=== PATIENT | female | born 1960 | race Caucasian/White ===

== ENCOUNTER 2019-06-10 17:16 | Outpatient (REF) | payer BC, SELFPAY ==
--- NOTE | 2019-06-10 15:45 | PAPFT_PTH ---
PATIENT: Ktahy Sharma LOC: NADIA U#:[id number] AGE/SX: 59/F ROOM: RE06/10/[address]: JESSICA Mast : 1960 BED: DIS: 06/10/2019 SPEC #: [id number] RECD: 06/10/19 17:56 STATUS: MILAGROS REFamilia #: [id number] ARTHUR: 06/10/19 15:[address]: Tiffanie Anderson DEPT: [facility] Cytology RECD BY: Kristina Eid ENTERED: 06/10/19 17:57 SP TYPE: PAPFT OTHR DR: Beatris Saeed Tissues: 1 - CX/ENDOCX FOR PAP SMEARS Procedures: PAP THIN PREP/[facility] Screening HPV DNA PROBE Comments: [id number]
== END 2019-06-10 17:36 ==
LOC: LBN 17:16
PROVIDERS: PCP Naturopath; Visit Provider Nurse Practitioner Family
DX: Z12.4 Encounter for screening for malignant neoplasm of cervix (principal); Z11.51 Encounter for screening for human papillomavirus (HPV)
CPT/HCPCS: 88142; 87624

== ENCOUNTER 2019-11-11 11:44 | Outpatient (CLI) | payer BC, SELFPAY ==
--- NOTE | 2019-11-11 11:21 | DI.RAD_ITS ---
EXAM: XR KNEE LT 4V AP,LAT,HAM,PAT INDICATION: eval L knee pain and crepitus. COMPARISON: No exams were available for comparison TECHNIQUE: 2D digital imaging was performed. FINDINGS: There is moderate to severe narrowing of the medial femoral tibial joint. There is spurring from the medial femoral condyle medial tibial plateau as well as tibial spines. There is mild spurring at th e articular aspect of the patella. The patella is normally positioned. 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
== END 2019-11-11 12:04 ==
PROVIDERS: PCP Naturopath; Visit Provider Student in an Organized Health Care Education/Training Program
DX: M25.562 Pain in left knee (principal); M23.92 Unspecified internal derangement of left knee
CPT/HCPCS: 73564

== ENCOUNTER 2020-07-26 02:58 | Outpatient (CLI) | payer BC, SELFPAY ==
--- NOTE | 2020-07-26 07:30 | DI.MAMMO_ITS ---
EXAM: MAMMO SCREENING CLINICAL HISTORY: screening TECHNIQUE: Mammograms were interpreted according to the usual protocol including computer analysis w [email or web address] CAD system, tomosynthesis and C-view imaging. COMPARISON: 2005 through 2008 FINDINGS: The breasts are composed of heterogeneously dense fibroglandular densities, Breast Density category C . No suspicious masses or suspicious microcalcifications are seen. No skin thickening or abnormal axillary lymph nodes are seen. There has been no significant change from prior exams. IMPRESSION: BI-RADS Category 1, Negative mammogram. Yearly screening mammography is recommended. Breast Density Category C, heterogeneously Dense. The mammogram demonstrates the patient's breast tissue is dense. Dense breast tissue is very common a nd is not abnormal but dense breast tissue can make it harder to find cancer on a mammogram. Also, de nse breast tissue may increase breast cancer risk. This information about the result of the mammogram report was provided to the patient to raise their awareness. Use this report when you speak with the patient about their risks for breast cancer, which includes their family history. At that time, you may recommend additional screening tests (Ultrasound or MRI) as they might be useful based on their r isk. A negative radiographic report should not delay biopsy if a dominant or clinically suspicious mass is present. Up to ten percent of cancers are not identified on mammography. A negative report may reinforce clinical impression. Adenosis and dense breasts may obscure an underlying neoplasm. False positive reports average 6 to 10%.
== END 2020-07-26 03:18 ==
PROVIDERS: PCP Naturopath; Visit Provider Nurse Practitioner Family
DX: Z12.31 Encounter for screening mammogram for malignant neoplasm of breast (principal); R92.2 Inconclusive mammogram
CPT/HCPCS: 77063; 77067

== ENCOUNTER 2021-01-30 04:26 | Outpatient (CLI) | payer BC, SELFPAY ==
--- NOTE | 2021-01-30 16:00 | RT.EKG_ITS ---
APPROVED REPORT Exam: Resting ECG Patient Location: O HR:87 bpm ECG Measurements Heart Rate 87 AXIS FL 118 P 75 QRSd 88 QRS 58 QT 379 T 39 QTc 456 Conclusion Sinus rhythm...normal P axis, V-rate 60- 99 Consider left ventricular hypertrophy...(S V1+R V5/V6) >3.25mV
== END 2021-01-30 04:27 | disposition home or self-care (01) ==
LOC: RT 04:26
PROVIDERS: PCP Naturopath; Visit Provider Naturopath
DX: R07.89 Other chest pain (principal)
CPT/HCPCS: 93005; 93010

== ENCOUNTER 2021-02-19 01:34 | Outpatient (CLI) | payer BC, SELFPAY ==
--- NOTE | 2021-02-19 10:16 | DI.RAD_ITS ---
EXAM: XR CHEST 2V PA LATERAL CLINICAL HISTORY: CHEST DISCOMFORT, OTHER CHEST PAIN,R07.89. TECHNIQUE: 2D digital imaging was performed. COMPARISON: No exams were available for comparison FINDINGS: Heart size is normal. The mediastinum is not widened. Lungs are clear. No infiltrates nor pleural effusions. IMPRESSION: No acute pulmonary findings. Incidentally noted is calcific tendinitis in the right shoulder. DATA REPOSITORY: RADIATION DOSE DELIVERED:
== END 2021-02-19 01:54 ==
PROVIDERS: PCP Naturopath; Visit Provider Naturopath
DX: R07.89 Other chest pain (principal)
CPT/HCPCS: 71046

== ENCOUNTER 2021-07-25 01:40 | Outpatient (CLI) | payer BC, SELFPAY ==
--- NOTE | 2021-07-25 14:53 | DI.US_ITS ---
APPROVED REPORT EXAM: Comprehensive 2D, Doppler, and color-flow Echocardiogram Patient Location: Out-Patient Maintenance Craftsman: Azul Da Silva RDCS (AE) Indications: Abnormal EKG Other Information Study Quality: Good Conclusion Normal left ventricular wall thickness and chamber size. Estimated ejection fraction is 60-65%. The re are no segmental wall motion abnormalities Normal right ventricular size and systolic function Both atria are normal in size There is no significant valvular disease Normal estimated right ventricular systolic pressure, 21 mmHg Wall motion Left Ventricle The left ventricle is normal size. The left ventricular systolic function is normal. The left ventric ular ejection fraction is within the normal range. There is normal left ventricular wall thickness. T here is normal LV segmental wall motion. There is no ventricular septal defect visualized. LVEF is 60 -65%. Right Ventricle The right ventricle is normal size. The right ventricular systolic function is normal. The RVSP is 21 .1 mmHg. Atria The left atrium size is normal. The right atrium size is normal. The interatrial septum is intact wit h no evidence for an atrial septal defect. Aortic Valve The aortic valve is normal in structure. Aortic valve is trileaflet. There is no aortic valvular sten osis. No aortic regurgitation is present. Mitral Valve The mitral valve is normal in structure. No evidence of mitral valve stenosis. Trace mitral regurgita tion. Tricuspid Valve The tricuspid valve is normal in structure. There is no tricuspid valve stenosis. Trace tricuspid reg urgitation. Pulmonic Valve The pulmonary valve is normal in structure. There is no pulmonic valvular stenosis. There is no pulmo flores valvular regurgitation. Great Vessels The aortic root is normal in size. The ascending aorta is normal in size. Aortic arch is normal in ca liber. IVC is normal in size and collapses >50% with inspiration. Pericardium There is no pericardial effusion. 2D Dimensions IVSD d PLAX 0.89 cm F: 0.6-1.0 LV Vol A2C d MOD 75.0 mL LVPW d PLAX 0.90 cm F: 0.6 - 1.0 LV Vol A4C d MOD 84.8 mL LVID d PLAX 4.48 cm F: 3.8 - 5.2 LA vol/ BSA A2C s A-L 20.2 mL/m2 LVDs 2.95 cm F: 2.2 - 3.5 LA vol/ BSA A4C s A-L 21.2 mL/m2 Ao Root d 2.96 cm F: 2.7 - 3.3 LA Vol/ BSA Biplane s A-L 20.8 mL/m2 RA Area A4C 10.81 cm2 LA Area A4C s MOD 14.29 cm2 RA Vol/ BSA A4C s A-L 13.4 mL/m2 LA Area A2C s MOD 13.90 cm2 Ao Asc Diam d 2.97 cm F: 2.3 - 3.1 LV EF A4C MOD 59.8 % LV EF Teichholz 63.1 % LV EF A2C MOD 66.0 % LVEF (Gerber's) 63.09 % F: 54 - 74 LV EF Biplane MOD 63.1 % LV Volume 63.86 mL F: 46 - 106 SV 50.86 mL LV Volume Index 37.34 mL/m2 F: 29 - 61 SV Index 29.72 mL/m2 LV Vol Biplane MOD 80.6 mL FS 33.95 % M-Mode TAPSE 2.70 cm (M/F) >1.7 LV Diastology MV E' medial 0.111 (>0.07 m/s) E/A Ratio 0.8 LV E/e MED 6.80 (<14) MV E Vmax 0.76 (0.4-1.3 m/s) MV E' lateral 0.127 (>0.1 m/s) MV A Vmax 0.90 (0.4-1.3 m/s) LV E/e LAT 5.95 (<14) MV E/A Ratio 0.84 MV E/E' medial 6.84 MV E/E' lateral 5.99 Aortic Valve LVOT Area 2.94 cm2 AoV Area Vmax 2.09 cm2 LVOT Vmax 1.01 m/s AoV Area/ BSA (Vmax) 1.22 cm2/m2 LVOT Mean Alexis. 0.70 m/s JOSE Mean Alexis. 2.12 cm2 LVOT Peak Grad 4.1 mmHg JOSE Mean Alexis. Index 1.24 cm2/m2 LVOT Mean Grad 2.2 mmHg LVOT VTI 0.223 m LVOT Diam s 1.90 cm AoV Vmax 1.43 m/s Velocity Ratio 0.70 AoV Mean Aleixs. 0.97 m/s AoV Peak Grad 8.2 mmHg LVOT SV 65.80 mL AoV Mean Grad 4.2 mmHg AoV VTI 0.313 m AoV Area VTI 2.10 cm2 AoV Area/ BSA (VTI) 1.23 cm/m2 Mitral Valve MV DT 195 (160-240 msec) MV PHT 56 msec MV Area PHT 3.90 cm2 MV VTI 0.291 m MV Area VTI 2.26 (4.0-6.0 cm2) Pulmonary Valve PV Vmax 1.26 (0.5-1.5 m/s) RVOT Peak Gr. 4.57 mmHg PV Peak Grad 6.4 mmHg RVOT Mean Gr. 2.05 mmHg PV Mean Grad 3.5 mmHg RVOT VTI 0.199 m PV VTI 0.261 m RVOT Vmax 1.07 m/s Tricuspid Valve TR Peak Grad 18.0 mmHg TR Vmax 2.13 m/s RA Pressure 3.00 mmHg RVSP (TR) 21.1 mmHg
== END 2021-07-25 02:00 ==
PROVIDERS: PCP Naturopath; Visit Provider Naturopath
DX: R94.31 Abnormal electrocardiogram [ECG] [EKG] (principal)
CPT/HCPCS: 93306

== ENCOUNTER 2021-10-19 13:27 | Emergency (ER) | payer BC, SELFPAY ==
--- NOTE | 2021-10-19 13:30 | DI.RAD_ITS ---
Exam(s) XR WRIST LT COMP NAVICULAR EXAM: XR WRIST LT COMP NAVICULAR CLINICAL HISTORY: FODAYAMI. TECHNIQUE: 2D digital imaging was performed. COMPARISON: No exams were available for comparison FINDINGS: There is a comminuted impacted fracture of distal radius. There is involvement of the radiocarpal abram int surface. Also significant dorsal angulation at the fracture site. No carpal dislocation. Very subtle suggestion of a nondisplaced fracture at the base of the ulnar styloid. No scaphoid-navicular fracture. Advanced degenerative changes at the 1st carpometacarpal joint are incidentally noted. IMPRESSION: Fracture of the distal radius as described above. There is involvement of the radiocarpal joint and there is dorsal angulation. Possible subtle nondisplaced fracture of the base of the ulnar styloid. DATA REPOSITORY: RADIATION DOSE DELIVERED:
--- OUTSIDE RECORDS SUMMARY | 2021-10-19 13:30 | XMS_ITS | Encounter Summary ---
:1960 External Reference #:[id number] Author Reason for Visit None recorded. Assessment and Plan Assessment Note I spent a total of 40 minutes face to face time with this patient and 25 minutes of that time was spent in counseling and coordination of care with that patient as described in the progress note and /or: recommended diagnostic studies risks and benefit treatment options Risk factor re duction 1. Edema of lower extremity ? leg and ankle edema: care instructions 2. Dietary management surveillan ce 3. Osteoarthritis ? arthritis: care instructio ns ? osteoarthritis: care instr uctions Discussion Note: None recorded. Plan of Care Patient Instructions 1. call for fu appt after stool elizabeth t sent in- 2. continue Calcium d glcarate, other gi support- you will try gi fortify again??? exercise program- Metabolic renewal Osteoarthritis support- contiue as rudi GENAO help draw out fluid buildup- plea se try to take daily in am or at work Reminders Provider Appointments None recorded. ? ? Lab None recorded. ? ? Referral None recorded. ? ? Procedures None recorded. ? ? Surgeries None recorded. ? ? Imaging None recorded. ? ? Medications Name Start Date ? ? Arthroben ? Collagen peptides, scutellaria biac. 1scoop/day or as directed [facility] testing admin fee ? SAMPLE COLLECTION DATE 09/06/2020 TIME 9 15AM PATIE NT 1960 Custom Herbal Blend#1 ? as directed 60 drops 3xday isatis, scutellaria baicalensis, copti s, devil's claw, teasel D-Mulsion 1000iu ? Take 1, 2, 3, , 4, or 5 drop/day 3-4 drops/day Glucosamine Msm 10/27/2015 Medications Administered None recorded. Vitals Weight Blood Pressure 151 lbs 116/68 mm[Hg] Results Lab Results None recorded. Allergies None recorded. Problems Name Status Onset Date Source ? Osteoarthritis Active 10/01/2017 ? Adult Health Examination Active 10/01/2018 ? Pain in Left Knee Active 10/01/2018 ? Vitamin D Deficiency Active 01/12/2019 ? Serrated Polyp of Colon Active 08/08/2020 ? Bilateral Tinnitus Active 08/08/2020 ? Edema of Lower Extremity Active 08/06/2021 ? Dietary Management Surveillance Active 08/06/2021 ? Procedures Date Name Performed by ? 05/27/1988 Caesarean Section Information not avai lable 10/27/1986 Caesarean Section Information not avai lable Vaccine List Vaccine Type DT (pediatric) 10/27/1964 DTP 10/27/1964 MMR 10/27/1964 polio, unspecified formulation 10/27/1964 rubella/mumps 10/27/1964 tetanus toxoid, unspecified formulation 04/26/2015 Social History Tobacco Smoking Status Never Smoker What type of diet are you following? REGULAR Do you have difficulty walking or N climbing stairs? What is your parents' marital status? Are you currently employed? Y Are you able to care for yourself? Y Marital status Do you have any siblings? one 1/2 sister How much tobacco do you chew? none What is your relationship status? Single Animal exposure? Y What is your level of alcohol Occasional consumption? Education 2 Year College Which illicit or recreational drugs have no you used? Frequent air travel N Are you deaf or do you have serious N difficulty hearing? Are you passively exposed to smoke? 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 [employer] - no degree Do you have difficulty dressing or N bathing? How many children do you have? 2 Are you blind or do you have difficulty N seeing? Supplements glucosimine, occ. vitamins Do you have difficulty doing errands N alone? General stress level Low How many years have you consumed 30 alcohol? What is your exercise level? Occasional Have there been any changes to your N family or social situation? Live alone or with others? alone Are you sexually active? N Do you use protection during sex? Always Do you have difficulty concentrating, N remembering or making decisions? Hard of hearing or deaf in one or both N ears? What is your level of caffeine Moderate consumption? 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 Past Encounters 08/01/2021 Edema of Lower Extremity; Dietary Manage ment Surveillance; Osteoarthritis Beatris Saeed, ND: [address], [place] [address], Ph. [phone] History of Present Illness Note: <div>when she was doing more fiber her stools were more bulky and easier to pass- she is eating some raw foods and cruciferous broccoli</div><div>4/7 dayswhen she took the gi fortify- </div><div>and she threw up but maybe thinks it was a headache related vomit- </div><div>
</div><div>hands dont hurt- </div><div>but her fluid retention in feet and ankles are still an issue- </div><div>she has soreness in her feet- </div><div>outer ankle both ankles- </div><div>
</div><div>she will call about fu after gdx sttool in- </div><div>she decided to do completeanalysis instead of cologuard bc cologaurd too expensive for out of pocket- </div><div>
</div><div>
</div> Review of Systems None recorded. Physical Exam ? General Adult Exam Reported By: Patient Constitutional: General Appearance: healthy- appearing, well-nourished, well-developed. Level of Dis tress: NAD. Ambulation: ambulating normally Psychiatric: Insight: good judgement. Men abhishek Status: active and alert, normal mood, normal affect. Orienta tion: to time, to place, to person. Memory: recent memory normal , remote memory normal Lungs: Respiratory effort: no dyspn ea. Percussion: no dullness, flatness, or hyperresonance. Auscultat ion: breath sounds normal, good air movement, CTA except as note d, no wheezing, no rales/crackles, no rhonchi Cardiovascular: Apical Impulse: not displace d. Heart Auscultation: RRR, normal S1, normal S2, no murmurs, no ru bs, no gallops. Neck vessels: no carotid bruits. Pulses inclu ding femoral / pedal: normal throughout Abdomen: Bowel Sounds: normal. Inspec tion and Palpation: soft, non-distended, no tenderness , no guarding, no rebound tenderness, no masses, no CVA tenderness . Liver: non-tender, no hepatomegaly. Spleen: non-tender, no splen omegaly. Hernia: none palpable Musculoskeletal:: Joints, Bones, and Muscles: bony deformity, malalignment, tenderness. Extremities: cleopatra ma; slight- non pitting Neurologic: Gait and Station: normal gai t, normal station
--- OUTSIDE RECORDS SUMMARY | 2021-10-19 13:30 | XMS_ITS | Encounter Summary ---
:1960 External Reference #:[id number] Author Reason for Visit None recorded. Assessment and Plan Assessment Note I spent a total of 40 minutes face to face time with this patient and 25 minutes of that time was spent in counseling and coordination of care with that patient as described in the progress note and /or: Importance of compliance with treatment plan Risk factor reduction instructions for t reatment and follow-up 1. Dietary management surveillan ce 2. Osteoarthritis ? osteoarthritis: care instr uctions 3. Flatulence, eructation and ga s pain ? gas and bloating: care ins tructions Discussion Note: None recorded. Plan of Care Patient Instructions 1. megaspores 1 cap 2xday 2. calcium d-glucarate 1 cap 2xday 3. motilpro-1 cap 3xday herbal tincture :oregano leaf and coptis combo 60 drops 2xday prodha 1 [id number] Reminders Provider Appointments None recorded. ? ? Lab None recorded. ? ? Referral None recorded. ? ? Procedures None recorded. ? ? Surgeries None recorded. ? ? Imaging None recorded. ? ? Medications Name Start Date ? ? Arthroben ? Collagen peptides, scutellaria biac. 1scoop/day or as directed [facility] testing admin fee ? SAMPLE COLLECTION DATE 09/06/2020 TIME 9 15AM PATIE NT 1960 Custom Herbal Blend#1 ? as directed 60 drops 3xday isatis, scutellaria baicalensis, copti s, devil's claw, teasel D-Mulsion 1000iu ? Take 1, 2, 3, , 4, or 5 drop/day 3-4 drops/day Glucosamine Msm 10/27/2015 Medications Administered None recorded. Vitals Weight 151 lbs Results Lab Results None recorded. Allergies None [...] Information) Functional Status No Impairment. Past Encounters 09/06/2021 Dietary Management Surveillance; Osteoar thritis; Flatulence, Eructation and Gas Pain Beatris Saeed, ND: [address] , [place] [address], Ph. [phone] History of Present Illness Note: <div>she is eating less sugar on paelo reds and greens- </div><div>she is only doing minimum of supplements- not full dosages recommended- we discussed results of labs and discussed need to increase dosage- </div><div>
</div><div>she is still experiencing joint pain in fingers- </div><div>
</div><div>dpesnt have a lot of gas issues- occassioanlly more than others, no epigastric pain- but methan levels are high- </div><div>havent realy gone down at all- other levels have imporved- but could be betterif she waere at recommended dosages- </div><div>
</div><div><br&g t;</div><div>
</div> Review of Systems None recorded. Physical Exam ? General Adult Exam Reported By: Patient Constitutional: General Appearance: healthy- appearing, well-nourished, well-developed. Level of Dis tress: NAD. Ambulation: ambulating normally Psychiatric: Insight: good judgement. Men abhishek Status: active and alert, normal mood, normal affect Lungs: Respiratory effort: no dyspn ea. Auscultation: breath sounds normal Cardiovascular: Heart Auscultation: RRR Musculoskeletal:: Motor Strength and Tone: nor mal motor strength, normal tone. Joints, Bones, and Muscles: normal movement of all extremities, bony deformity, malalignment . Extremities: no cyanosis, no edema
--- OUTSIDE RECORDS SUMMARY | 2021-10-19 13:30 | XMS_ITS ---
:1960 External Reference #:[id number] Author Care Team Providers Name Role Phone [facility] Primary Care Provider Unavailable Allergies None recorded. Medications Name Status Start Date Stop Date ? ? Arthroben Active ? Not available Collagen peptides, scutellaria biac. 1scoop/day or as directed covid vtdoh testing admin fee Active ? No t available SAMPLE COLLECTION DATE 09/06/2020 TIME 9 15AM PATIENT 04/26 Custom Herbal Blend#1 Active ? Not availa ble as directed 60 drops 3xday isatis, scutellaria baicalensis, coptis, devil's claw, teasel D-Mulsion 1000iu Active ? Not available Take 1, 2, 3, , 4, or 5 drop/day 3-4 drops/day Glucosamine Msm Active 10/27/2015 Not available Multiple Vitamins tablet Active 01/26/2016 Not bev ilable 1 tablet 3 times a week by oral route. penicillin V potassium 500 mg Completed ? tablet Problems Name Status Onset Date Source ? [...] 10/27/1986 Caesarean Section Information not avai lable 11/05/2016 Dexa Xray [facility] [address] [place], [place] [address] ([place] [address]) 08/06/2017 XR, Wrist + Hand [facility]ray [facility] [address] [place] [address] ([place] Place) 08/11/2017 XR, Knee, 3 View [facility] [address] [place] [address] ([place] Place) 01/12/2019 Bone Density [facility]ray [facility] [address] [place] [address] (Work Place) 12/19/2020 XR, Chest, 3 View [facility] [address] [place] [address] (Work Place) 12/19/2020 Dexa [facility]ray [facility] [address] [place] [address] (Work Place) 12/19/2020 Electrocardiogram [facility]ray [facility] [address] [place] [address] (Work Place) 06/14/2021 US, Echocardiogram [facility]ray [facility] [address] [place] [address] (Work Place) Results Lab Results Date Name Specimen Result Interpretation Description Value Range Status Address ? 07/18/2020 Cbc ? Wbc 4.64 4.00-10.10 Final Ge [facility] x10(3)/uL x10(3)/uL [facility] ([facility] [address], [place] ? ? ? Rbc 4.55 3.58-5.19 Final [facility] x10(6)/uL x10(6)/uL [facility] ([facility]): [address], [place] ? ? ? Hgb 13.6 g/dL 11.0-15.5 Final [facility] g/dL Health ([facility]): [address], [place] ? ? ? Hct 39.8 % 31.5-44.8 % Final [facility] ([facility]): [address], [place] ? ? ? Mcv 87.5 fL 78.0-98.0 Final Genpat [facility] fL [facility] ([facility]): [address], [place] ? ? ? Mch 29.9 pg 25.2-32.6 Final [facility] pg Health ([facility]): [address], [place] ? ? ? Mchc 34.2 g/dL 31.0-34.7 Final [facility] g/dL [facility] ([facility]): [address], [place] ? ? ? Rdw 12.8 % 12.0-15.5 % Final [facility] ([facility]): [address], [place] ? ? ? Polys 61.6 % 37.1-78.1 % Final [facility] ([facility]): [address], [place] ? ? ? Lymphs 26.7 % 13.7-50.9 % Final [facility] ([facility]): [address] ? ? ? Monos 8.0 % 3.0-11.9 % Final [facility] ([facility]): [address] ? ? ? Eos 2.6 % 0.0-5.0 % Final [facility] ([facility]): [address] ? ? High Basos 1.1 % 0.0-1.0 % Final [facility] ([facility]): [address] ? ? ? Immature 0.0 % 0.0-1.0 % Final [facility] Granulocy Health elizabeth ([facility]): [address] ? ? ? Platelet 245 140-425 Final [facility] Count x10(3)/uL x10(3)/uL [facility] ([facility]): [address] ? ? ? Mpv 9.8 fL 8.6-12.1 fL Final Gennj [facility] ([facility]): [address], [place] 07/18/2020 Vitamin ? 25OH, 58.5 NG/mL 32.0-100.0 Corin l [facility] D, Vitamin D NG/mL Health 25-Hydrox (Bio-Re ference y, Total, Laborat ories): Serum [address], [place] 07/18/2020 CMP, ? Total 6.6 g/dL 5.9-8.4 Final [facility] Serum or Protein g/dL Health Plasma ([facility]): [address], [place] ? ? ? Albumin 4.8 g/dL 3.5-5.2 [facility] ([facility]): [address], [place] ? ? ? Globulin 1.8 g/dL 1.7-3.7 Final [facility]ens g/dL Health ([facility]): [address], [place] ? ? ? A/g 2.7 ratio 1.1-2.9 Final [facility]pat [facility]omens Ratio ratio Health ([facility]): [address], [place] ? ? ? Sodium 144 mmol/L 135-147 Final [facility] mmol/L Health ([facility]): [address], [place] ? ? ? Potassiu 4.9 mmol/L 3.5-5.5 Final Ge n[facility] m mmol/L Health ([facility]): [address], [place] ? ? ? Chloride 105 mmol/L 96-108 Final Gen path [facility] mmol/L Health ([facility]): [address], [place] ? ? ? Co2 26 mmol/L 22-29 Final [facility] mmol/L Health ([facility]): [address], [place] ? ? ? Bun 12 mg/dL 6-20 mg/dL Final [facility] ([facility]): [address], [place] ? ? ? Creatini 0.95 mg/dL 0.49-1.02 Final [facility] ne mg/dL Health ([facility]): [address], [place] ? ? ? E-GFR 66 mL/min >or=60 Final [facility] mL/min Health ([facility]): [address], [place] ? ? ? E-GFR, 76 mL/min >or=60 Final [facility]pat [facility] mL/min Health [place] (Bio-Ref erence Laboratori es): [address], [place] ? ? ? BUN/crea 12.6 ratio 10.0-28.0 Final [facility] t Ratio ratio Health ([facility]): [address], [place] ? ? ? Calcium 9.5 mg/dL 8.6-10.4 Final Gen path [facility]ens mg/dL Health ([facility]): [address], [place] ? ? ? Bilirubi 0.4 mg/dL <1.2 mg/dL Final [facility] n, Total Health ([facility]): [address] ? ? ? Alk Phos 60 U/L 40-156 U/L Final [facility] ([facility]): [address] ? ? ? Ast 27 U/L <32 U/L Final [facility] omens Health ([facility]ce Labor[facility] es): [address] ? ? ? Alt 27 U/L <33 U/L Final Genpath W [facility] Health (Bio-Refer ence Laboratori es): [address] ? ? ? Glucose 92 mg/dL 70-99 mg/dL Final G [facility] (Bio-Refer ence Laboratori es): [address], [place] 09/15/2019 CBC W/ Normal Wbc 4.3 4.2-11.8 Final Accu Reference Auto Diff 10^3/uL 10^3/uL Medic al Lab: [address], [place] ? ? Normal Rbc 4.50 3.8-5.0 Final Accu Refe rence 10^6/uL 10^6/uL Medical Lab: [address], [place] ? ? Normal Hemoglob 13.7 g/dL 11.3-14.9 Final A ccu Reference in g/dL Medical La b: [address], [place] ? ? Normal Hematocr 41 % 34-44.3 % Final Accu Reference it Medical La b: [address], [place] ? ? Normal Mcv 91 fL 80.8-97.4 Final Accu Re ference fL Medical La b: [address], [place] ? ? Normal Mch 30.4 pg 26.6-33.0 Final Accu R eference pg Medical La b: [address], [place] ? ? Normal Mchc 33.2 g/dL 32-34.9 Final Accu R eference g/dL Medical La b: [address], [place] ? ? Normal Rdw 13.5 % 11.8-15.5 % Final Accu Reference Medical La b: [address], [place] ? ? Normal Platelet 223 147-365 Final Accu R eference 10^3/uL 10^3/uL Medical Lab: [address], [place] ? ? Normal Mpv 8.00 fL 6.00-12.00 Final Accu Reference fL Medical La b: [address], [place] ? ? Normal Segmente 57.6 % 43.7-73.5 % Final Ac cu Reference d % Medical La b: [address], [place] ? ? Normal Segmente 2.5 1.9-7.5 Final Accu R eference d # 10^3/uL 10^3/uL Medical Lab: [address], [place] ? ? Normal Lymphocy 32.52 % 17.9-45.1 % Final A ccu Reference elizabeth % Medical La b: [address], [place] ? ? Normal Lymphocy 1.4 1-4 10^3/uL Final Ac cu Reference elizabeth # 10^3/uL Medical L ab: [address], [place] ? ? Normal Monocyte 7.4 % 3.8-10 % Final Accu Reference s % Medical La b: [address], [place] ? ? Normal Monocyte 0.3 0.2-0.9 Final Accu R eference s # 10^3/uL 10^3/uL Medical Lab: [address], [place] ? ? Normal Eosinoph 1.92 % 0.0-6.1 % Final Accu Reference ils % Medical La b: [address], [place] ? ? Normal Eosinoph 0.08 0.0-0.5 Final Accu R eference ils # 10^3/uL 10^3/uL Medical Lab: [address], [place] ? ? Normal Basophil 0.56 % 0.0-0.9 % Final Accu Reference s % Medical La b: [address], [place] ? ? Normal Basophil 0.02 0.0-0.1 Final Accu R eference s # 10^3/uL 10^3/uL Medical Lab: [address], [place] 09/15/2019 ESR Normal Sediment 2 mm/HR 0-30 mm/HR Final Accu Reference ([facility] Lab: yte Rate [address], tion [place] Rate), Blood 09/15/2019 C-reactiv Normal CRP 1.6 mg/L 0.0-10.0 Final Accu Reference e Quantitat mg/L Medical Lab: Protein, giovani [address], [place] 09/15/2019 Vitamin Normal Vitamin 39.0 NG/mL 30-100 Final Accu Reference D, D-25 NG/mL Medical La b: 25-Hydrox Hydroxy [address] [place] [address], Total, [address], Serum [place] 12/31/2018 CMP, serum ? Glucose 93 mg/dL <100 mg/dL Final [facility] Serum or Diagnost ics: Plasma [address], [place] ? ? serum ? Bun 13 mg/dL 7-25 mg/dL Final Merc y Diagnostic s: [address], [place] ? ? serum ? Creatini 1.01 mg/dL 0.70-1.20 Final [facility] ne mg/dL Diagnostic s: [address], [place] ? ? serum ? BUN / 12.9 ratio 6.0-21.0 Final [facility] y Creatinin ratio Diagnos tics: e Ratio [address], [place] ? ? serum ? eGFR 71 >60 Final [facility] mL/min/1.7 mL/min/1.73 Diagnostics: Iraqi 3m2 m2 [address], [place] ? ? serum ? eGFR 61 >60 Final [facility] Non-afric mL/min/1.7 mL/min/1.73 Diagnostics: an 3m2 m2 [address] [place] [address], [place] ? ? serum ? Sodium 144 mmol/L 135-145 Final Merc y mmol/L Diagnostic s: [address], [place] ? ? serum ? Potassiu 4.1 mmol/L 3.5-5.1 Final Me rcy m mmol/L Diagnostic s: [address], [place] ? ? serum ? Chloride 105 mmol/L 98-107 Final Lexy cy mmol/L Diagnostic s: [address], [place] ? ? serum ? Co2 29 mmol/L 21-31 Final [facility] mmol/L Diagnostic s: [address], [place] ? ? serum ? Anion 10 mEq/L 5-15 mEq/L Final Merc y Gap Diagnostic s: [address], [place] ? ? serum ? Calcium 9.7 mg/dL 8.6-10.3 Final Lexy cy mg/dL Diagnostic s: [address], [place] ? ? serum ? Total 6.5 g/dL 6.4-8.9 Final [facility] Protein g/dL Diagnosti cs: [address], [place] ? ? serum ? Albumin 4.4 g/dL 3.5-5.7 Final [facility] g/dL Diagnostic s: [address], [place] ? ? serum ? Globulin 2.1 g/dL 1.9-3.5 Final [facility] y g/dL Diagnostic s: [address], [place] ? ? serum High Albumin 2.1 ratio 0.8-2.0 Final Merc y / ratio Diagnostic s: Globulin [address] Ratio [address], [place] ? ? serum ? Tbili 0.7 mg/dL 0.1-1.5 Final [facility] mg/dL Diagnostic s: [address], [place] ? ? serum ? Alk. 54 IU/L 46-118 IU/L Final Merc y Phosphata Diagnos tics: se [address], [place] ? ? serum ? Ast 20 IU/L 13-39 IU/L Final [facility] Diagnostic s: [address], [place] ? ? serum ? Alt 15 IU/L 7-52 IU/L Final [facility] Diagnostic s: [address], [place] 12/31/2018 Lipid serum ? Chol 179 mg/dL <200 mg/dL Final [facility] Panel, Diagnostic s: Serum [address], [place] ? ? serum ? Trig 69 mg/dL <149 mg/dL Final Merc y Diagnostic s: [address], [place] ? ? serum ? Ldl 84.3 mg/dL <99.0 mg/dL Final [facility] Diagnostic s: [address], [place] ? ? serum ? Hdl 74 mg/dL >39 mg/dL Final [facility] Diagnostic s: [address], [place] ? ? serum ? LDL/HDL 1.1 ratio ? [facility] [address], [place] ? ? serum ? Trig/hdl 0.9 ratio <2.0 ratio [facility]: [address], [place] ? ? serum ? Chol/hdl 2.4 ratio ? Final [facility] y Diagnostic s: [address], [place] ? ? serum ? Vldl 13.8 mg/dL <30.0 mg/dL [facility]: [address], [place] 12/31/2018 Vitamin serum ? Vitamin 41.3 NG/mL 30.0-100.0 Fi nal [facility] D, D 25-Oh NG/mL Diagnosti cs: 25-Hydrox [address] y, Total, [address], [place] 12/31/2018 Lipoprote Serum ? Lipoprot 17 mg/dL <=29 mg/dL F inal [facility] in (a), ein (a) Diagnost ics: Serum [address], [place] 12/31/2018 CBC W/ wholeb Low White 3.3 4.0-11.0 Final Merc y Auto Diff lood Blood 10^3/uL 10^3/uL Diagn ostics: Cell [address] Count [address], [place] ? ? wholeb ? Red 4.53 4.00-5.40 Final [facility] lood Blood 10^6/uL 10^6/uL Diagnost ics: Cell [address] Count [address], [place] ? ? wholeb ? Hemoglob 13.6 g/dL 12.5-16.0 Final ercy lood in g/dL Diagnostic s: [address], [place] ? ? wholeb ? Hematocr 40.3 % 37.0-47.0 % Final Md rcy lood it Diagnostic s: [address], [place] ? ? wholeb ? Mean 88.9 fL 78.0-100.0 Final [facility] fL Diagnostic s: Volume [address], [place] ? ? wholeb ? Mean 30.0 pg 25.0-35.0 Final [facility] lood Cell pg Diagnostic s: Hemoglobi [address], [place] ? ? wholeb ? Mean 33.7 g/dL 30.0-37.0 Final Merc [facility] lood Cell g/dL Diagnostic s: Hemoglobi [address], [place] Concentra [place] t[place] ? ? wholeb ? Red Cell 13.6 % 11.5-14.5 % Final Me rcy lood Distribut Diagnos tics: ion Width [address], [place] ? ? wholeb ? Platelet 255 150-450 Final [facility] lood Count 10^3/uL 10^3/uL Diagnost ics: [address], [place] ? ? wholeb ? Mean 8.1 fL 6.8-10.4 fL Final [facility] lood Platelet Diagnost ics: Volume [address], [place] ? ? wholeb ? Neutroph 51.4 % 40.0-70.0 % Final Me rcy lood il Diagnostic s: Percent [address], [place] ? ? wholeb ? Absolute 1.7 1.5-6.6 Final [facility] lood Neutrophi 10^3/uL 10^3/uL Diagn ostics: l [address], [place] ? ? wholeb ? Lymphocy 34.9 % 18.0-48.0 % Final Me rcy lood te Diagnostic s: Percent [address], [place] ? ? wholeb ? Absolute 1.2 0.8-4.8 Final [facility] lood Lymphocyt 10^3/uL 10^3/uL Diagn ostics: e [address], [place] ? ? wholeb ? Monocyte 9.6 % 2.0-11.0 % Final Lexy cy lood Percent Diagnosti cs: [address], [place] ? ? wholeb ? Absolute 0.30 0.00-0.90 Final [facility] lood Monocyte 10^3/uL 10^3/uL Diagno stics: [address], [place] ? ? wholeb ? Eosinoph 3.0 % 0.0-5.0 % Final [facility] lood il Diagnostic s: Percent [address], [place] ? ? wholeb ? Absolute 0.1 0.0-0.5 Final [facility] lood Eosinophi 10^3/uL 10^3/uL Diagn ostics: l [address], [place] ? ? wholeb ? Basophil 1.1 % 0.0-2.0 % Final [facility] lood Percent Diagnosti cs: [address], [place] ? ? wholeb ? Basophil 0.00 0.00-0.30 Final [facility] lood Absolute 10^3/uL 10^3/uL Diagno stics: [address], [place] 10/03/2018 Fecal STOOL ? Insure negative negative Final [facility] Occult Fit Test Diagnost ics: Blood, [address] Immunoass [address], [place], Stool [place] 08/06/2017 VIKRAM Serum ? Anti-nuc none none Final Lexy cy (Antinucl lear Ab detected detected Di agnostics: ear (VIKRAM), [address] Antibodie IgG by [address], [place]) IgG Mar [place] Ab, Qual, Serum 08/06/2017 CMP, serum ? Glucose 92 mg/dL <100 mg/dL Final [facility] Serum or Diagnost ics: Plasma [address], [place] ? ? serum ? Bun 14 mg/dL 7-25 mg/dL Final [facility] Diagnostic s: [address], [place] ? ? serum ? Creatini 0.85 mg/dL 0.70-1.30 Final [facility] ne mg/dL Diagnostic s: [address], [place] ? ? serum ? BUN / 16.5 ratio 6.0-21.0 Final [facility] Creatinin ratio Diagnos tics: e Ratio [address], [place] ? ? serum ? eGFR 89 >60 Final [facility] mL/min/1.7 mL/min/1.73 Diagnostics: Iraqi 3m2 m2 [address], [place] ? ? serum ? eGFR 76 >60 Final [facility] Non-afric mL/min/1.7 mL/min/1.73 Diagnostics: an 3m2 m2 [address] [place] [address], [place] ? ? serum ? Sodium 142 mmol/L 135-145 Final [facility] mmol/L Diagnostic s: [address], [place] ? ? serum ? Potassiu 4.2 mmol/L 3.5-5.1 Final Me [facility] m mmol/L Diagnostic s: [address], [place] ? ? serum ? Chloride 105 mmol/L 98-107 Final Lexy cy mmol/L Diagnostic s: [address], [place] ? ? serum ? Co2 25 mmol/L 21-31 Final [facility] mmol/L Diagnostic s: [address], [place] ? ? serum ? Anion 12 mEq/L 5-15 mEq/L Final [facility] Gap Diagnostic s: [address], [place] ? ? serum ? Calcium 9.7 mg/dL 8.6-10.3 Final [facility] cy mg/dL Diagnostic s: [address], [place] ? ? serum ? Total 6.4 g/dL 6.4-8.9 Final [facility] Protein g/dL Diagnosti cs: [address], [place] ? ? serum ? Albumin 4.4 g/dL 3.5-5.7 Final [facility] g/dL Diagnostic s: [address], [place] ? ? serum ? Globulin 2.0 g/dL 1.9-3.5 Final [facility] g/dL Diagnostic s: [address], [place] ? ? serum High Albumin 2.2 ratio 0.8-2.0 Final [facility] / ratio Diagnostic s: Globulin [address] Ratio [address], [place] ? ? serum ? Tbili 0.5 mg/dL 0.1-1.5 Final [facility] mg/dL Diagnostic s: [address], [place] ? ? serum ? Alk. 52 IU/L 46-118 IU/L Final [facility] Phosphata Diagnos tics: se [address], [place] ? ? serum ? Ast 17 IU/L 13-39 IU/L Final [facility] Diagnostic s: [address], [place] ? ? serum ? Alt 14 IU/L 7-52 IU/L Final [facility] Diagnostic s: [address], [place] 08/06/2017 C-reactiv serum ? CRP 1.03 mg/L <8.00 mg/L Fin al [facility] e Inflammat Diagnos tics: Protein, ion [address] Quantitat [address], [place] gi[place]ani [place] 08/06/2017 Tawanna-b serum High Ebv 167.0 <18.0 index Final [facility] Virus Antibody index Diagn ostics: (Ebv) IgG to Viral [address] + IgM Capsid [address], [place] Panel, Antigen [place] Serum IgG ? ? serum ? Ebv <10.0 <36.0 index Final [facility] Antibody index Diagnost ics: to Viral [address] Capsid [address], [place] Antigen [place] IgM ? ? serum High Ebv 278.0 <18.0 index Final [facility] Antibody index Diagnost ics: to [address] Nuclear [address], Mo unt Antigen [place] IgG ? ? serum High Ebv 14.7 index <9.0 index Final [facility]cy Antibody Diagnost ics: to Early [address] (D) [address] [address], [place] Antigen [place] IgG 08/06/2017 Rf serum ? Rf <10.0 <14.0 IU/mL Final [facility] (Rheumato IU/mL Diagnos tics: id [address] Factor), [address], M ount Serum [place] 08/06/2017 Vitamin serum ? Vitamin 40.5 NG/mL 30.0-100.0 Fi nal [facility] D, D 25-Oh NG/mL Diagnosti cs: 25-Hydrox [address] y, Total, [address], [place] 08/06/2017 ESR wholeb ? Esr 0 mm/HR 0-30 mm/HR Final [facility] (Erythroc lood Diagnos tics: yte [address] Sedimenta [address], [place] t[place] Rate), Blood 08/06/2017 CBC W/ wholeb ? White 4.3 4.0-11.0 Final [facility] Auto Diff lood Blood 10^3/uL 10^3/uL Diagn ostics: Cell [address] Count [address], [place] ? ? wholeb ? Red 4.51 4.00-5.40 Final [facility] lood Blood 10^6/uL 10^6/uL Diagnost ics: Cell [address] Count [address], [place] ? ? wholeb ? Hemoglob 13.9 g/dL 12.5-16.0 Final [facility] lood in g/dL Diagnostic s: [address], [place] ? ? wholeb ? Hematocr 40.5 % 37.0-47.0 % Final Me [facility]cy lood it Diagnostic s: [address], [place] ? ? wholeb ? Mean 90 fL 78-100 fL Final [facility] lood Cell Diagnostic s: Volume [address], [place] ? ? wholeb ? Mean 30.9 pg 25.0-35.0 Final [facility] lood Cell pg Diagnostic s: Hemoglobi [address], [place] ? ? wholeb ? Mean 34.4 g/dL 30.0-37.0 Final [facility] lood Cell g/dL Diagnostic s: Hemoglobi [address], [place] Concentra [place] tion ? ? wholeb ? Red Cell 13.0 % 11.5-14.5 % Final [facility] lood Distribut Diagnos tics: ion Width [address], [place] ? ? wholeb ? Platelet 239 150-450 Final [facility] lood Count 10^3/uL 10^3/uL Diagnost ics: [address], [place] ? ? wholeb ? Mean 8.0 fL 6.8-10.4 fL Final [facility] lood Platelet Diagnost ics: Volume [address], [place] ? ? wholeb ? Neutroph 58.5 % 40.0-70.0 % Final Me r[facility] lood il Diagnostic s: Percent [address], [place] ? ? wholeb ? Absolute 2.5 1.5-6.6 Final [facility] lood Neutrophi 10^3/uL 10^3/uL Diagn ostics: l [address], [place] ? ? wholeb ? Lymphocy 29.3 % 18.0-48.0 % Final Me r[facility] lood te Diagnostic s: Percent [address], [place] ? ? wholeb ? Absolute 1.3 0.8-4.8 Final [facility] lood Lymphocyt 10^3/uL 10^3/uL Diagn ostics: e [address], [place] ? ? wholeb ? Monocyte 9.3 % 2.0-11.0 % Final [facility] cy lood Percent Diagnosti cs: [address], [place] ? ? wholeb ? Absolute 0.40 0.00-0.90 Final [facility] lood Monocyte 10^3/uL 10^3/uL Diagno stics: [address], [place] ? ? wholeb ? Eosinoph 2.5 % 0.0-5.0 % Final [facility] lood il Diagnostic s: Percent [address] [place], [place] ? ? wholeb ? Absolute 0.1 0.0-0.5 Final [facility] Eosinophi 10^3/uL 10^3/uL Diagn ostics: l [address] [place], [place] ? ? wholeb ? Basophil 0.4 % 0.0-2.0 % Final [facility] Percent Diagnosti cs: [address] [place], [place] ? ? wholeb ? Basophil 0.00 0.00-0.30 Final [facility] Absolute 10^3/uL 10^3/uL Diagno stics: [address] [place], [place] 12/26/2016 ESR wholeb ? Esr 2 mm/HR 0-30 mm/HR Final M er[facility] (Erythroc lood Diagnos tics: yte [address] Sedimenta [place], [place] Rate), Blood 12/26/2016 CBC W/ wholeb ? White 4.7 4.0-10.5 Final Merc y Auto Diff lood Blood 10^3/uL 10^3/uL Diagn ostics: Cell [address] Count [place], [place] ? ? wholeb ? Red 4.60 4.20-5.40 Final [facility] Blood 10^6/uL 10^6/uL Diagnost ics: Cell [address] Count [place], [place] ? ? wholeb ? Hemoglob 13.8 g/dL 12.5-16.0 Final [facility] lood in g/dL Diagnostic s: [address] [place], [place] ? ? wholeb ? Hematocr 41.3 % 37.0-47.0 % Final Me [facility] lood it Diagnostic s: [address] [place], [place] ? ? wholeb ? Mean 90 fL 78-100 fL Final [facility] Cell Diagnostic s: Volume [address] [place], [place] ? ? wholeb ? Mean 29.9 pg 27.0-31.0 Final [facility] Cell pg Diagnostic s: Hemoglobi [address] [place], [place] ? ? wholeb ? Mean 33.3 g/dL 32.0-36.0 Final [facility]ood Cell g/dL Diagnostic s: Hemoglobi [address] [place], [facility] [facility] [place] tion ? ? wholeb ? Red Cell 13.8 % 11.5-14.0 % Final [facility]ood Distribut Diagnos tics: ion Width [address] [place], [place] ? ? wholeb ? Platelet 248 150-450 Final [facility] Count 10^3/uL 10^3/uL Diagnost ics: [address] [place], [place] ? ? wholeb ? Mean 8.2 fL 6.8-10.2 fL Final [facility] Platelet Diagnost ics: Volume [address] [place], [place] ? ? wholeb ? Neutroph 53.3 % 50.0-70.0 % Final [facility] il Diagnostic s: Percent [address] [place], [place] ? ? wholeb ? Absolute 2.5 1.5-6.6 Final [facility] Neutrophi 10^3/uL 10^3/uL Diagn ostics: l [address] [place], [place] ? ? wholeb ? Lymphocy 33.7 % 18.0-42.0 % Final [facility] te Diagnostic s: Percent [address] [place], [place] ? ? wholeb ? Absolute 1.6 0.8-4.8 Final [facility] Lymphocyt 10^3/uL 10^3/uL Diagn ostics: e [address] [place], [place] ? ? wholeb ? Monocyte 10.5 % 2.0-11.0 % Final [facility] cy lood Percent Diagnosti cs: [address] [place], [place] ? ? wholeb ? Absolute 0.50 0.00-0.90 Final [facility]ood Monocyte 10^3/uL 10^3/uL Diagno stics: [address] [place], [place] ? ? wholeb ? Eosinoph 1.5 % 0.0-5.0 % Final [facility] lood il Diagnostic s: Percent [address] [place], [place] ? ? wholeb ? Absolute 0.1 0.0-0.5 Final [facility] Eosinophi 10^3/uL 10^3/uL Diagn ostics: l [address] [place], [place] ? ? wholeb ? Basophil 1.0 % 0.0-2.0 % Final [facility] Percent Diagnosti cs: [address] [place], [place] ? ? wholeb ? Basophil 0.00 0.00-0.30 Final [facility] Absolute 10^3/uL 10^3/uL Diagno stics: [address] [place], [place] 12/05/2016 Endomysia Serum ? Endomysi <1:10 <1:10 Final [facility] l Iga Ab, al Diagnos tics: Serum Antibody, [address] IgA Titer V[place], [place] 12/05/2016 Gliadin Serum ? Deamidat 5 units 0-19 units Corin l [facility] Peptide ed Diagnosti cs: Iga Ab, Gliadin [address] Serum Peptide Víctor B, Mo unt (Dgp) Ab, [place] IgA 12/05/2016 Gliadin Serum ? Deamidat 3 units 0-19 units Corin l [facility] Peptide ed Diagnosti cs: Igg Ab, Gliadin [address] Serum Peptide Víctor B, Mo unt (Dgp) Ab, [place] IgG 12/05/2016 Mycoplasm Serum High Mycoplas 0.20 U/L <=0.09 U/L F inal [facility] a ma Diagnostic s: Pneumonia Pneumonia [address] e Igg Ab, e V[place] B, [place] EIA, Antibody [place] Serum IgG 12/05/2016 Tissue Serum ? Tissue 0 U/mL 0-3 U/mL Final Lexy cy Transglut Transglut Diag nostics: aminase aminase [address] Iga Ab, (Ttg) Ab, Víctor B, [place] Serum IgA [place] 12/05/2016 Tawanna serum High Ebv 327.0 <18.0 index [facility] Antib[facility] index Diagnost ics: Virus Ab, to [address] QN, Serum Nuclear Víctor B, [place] Antigen [place] IgG 12/05/2016 Ferritin, serum ? Ferritin 56.3 NG/mL 13.0-150.0 [facility] Serum or NG/mL Diagnost ics: Plasma [address] V[place], [place] 12/05/2016 Vitamin serum ? Vitamin 55.8 NG/mL 30.0-100.0 Fi nal [facility] D, D 25-Oh NG/mL Diagnosti cs: 25-Hydrox [address] y, Total, Víctor B, [place] Serum [place] 12/05/2016 Iron + serum ? Iron 72 ug/dL 50-212 Final Merc y Total ug/dL Diagnostic s: Iron-bind [address] ing V[place] B, [place] Capacity [place] (TIBC), Serum ? ? serum ? Transfer 254.7 203.0-362.0 Final Me rcy rin mg/dL mg/dL Diagnostic s: [address] [place], [place] ? ? serum ? Tibc 364.2 250.0-450.0 Final [facility] ug/dL ug/dL Diagnostic s: [address] [place], [place] ? ? serum ? Uibc 292.2 155.0-355.0 Final [facility] ug/dL ug/dL Diagnostic s: [address] [place], [place] ? ? serum ? %Saturat 19.8 % 14.0-50.0 % Final Me rcy ion Diagnostic s: [address] V[place], [place] 09/10/2016 Vitamin serum ? Vitamin 49.0 NG/mL 30.0-100.0 Fi nal [facility] D, D 25-Oh NG/mL Diagnosti cs: 25-Hydrox [address] y, Total, Víctor B, [place] Serum [place] Past Encounters 09/06/2021 Dietary Management Surveillance; Osteoar thritis; Flatulence, Eructation and Gas Pain Beatris Saeed, ND: [address] [place] [address], Ph. [phone] 08/01/2021 Edema of Lower Extremity; Dietary Manage ment Surveillance; Osteoarthritis Beatris Saeed, ND: [address] [place] [address], Ph. [phone] 06/14/2021 Electrocardiogram Abnormal; Dietary Patti gement Surveillance; Constipation Beatris Saeed ND: [address] [place] [address], Ph. [phone] 12/19/2020 Chest Discomfort; Screening for Osteopor osis; Dietary Management Surveillance Beatris Saeed, ND: [address] [place] [address], Ph. [phone] 11/23/2020 Xerostomia; Dietary Management Surveilla nce Beatris Saeed, ND: [address] [facility], [place] [address], Ph. 11/02/2020 Dietary Management Surveillance Beatris Saeed, ND: [address] [facility] [place] [address], Ph. [phone] 08/03/2020 Bilateral Tinnitus; Vitamin D Deficiency ; Serrated Polyp of Colon Beatris Saeed, ND: [address] [facility] [place] [address], Ph. [phone] 05/30/2020 Vitamin D Deficiency; Serrated Polyp of Colon; Pain in Left Knee Beatris Saeed, ND: [address] [place] [address], Ph. [phone] Social History Tobacco Smoking Status Never Smoker Vaccine List Vaccine Type DT (pediatric) 10/27/1964 DTP 10/27/1964 MMR 10/27/1964 polio, unspecified formulation 10/27/1964 rubella/mumps 10/27/1964 tetanus toxoid, unspecified formulation 04/26/2015 Plan of Care Patient Instructions 1. megaspores 1 cap 2xday 2. calcium d-glucarate 1 cap 2xday 3. motilpro-1 cap 3xday herbal tincture :oregano leaf and coptis combo 60 drops 2xday prodha 1 [id number] 1. call for fu appt after stool elizabeth t sent in- 2. continue Calcium d glcarate, other gi support- you will try gi fortify again??? exercise program- Metabolic renewal Osteoarthritis support- contiue as rudi GENAO help draw out fluid buildup- plea se try to take daily in am or at work 1. Dr Jess Aviles-MEtabolic Renewal-1 5 minutes workout- 2. Echocardiogram- [place]- ?[employer] 3. Betaglucaronidase- SCFA? and methane- Chemistry stool and betaglucaronidase test- are recommended- will get you prices- these will be through Doctors data 4. Cologuard retest? Please call when decide where you would like US- echocardiogram orders sent 1. Supplements: Can stop calcium and slemomet and vitami n E or finish bottles and then replace with Womens Nutrients 1 cap 3xday- OR 2 in am 1 in pm stop green tea caps- drink instead Stop Allimax- keep in medicine cabinet f or immune support, antibiotic- early on for minor infections topically and/or gut stop b12 with cranberry- This is in [place] nutrients 2. cleanse this spring 3. dexa scan for osteoporosis screening 1. dry mouth - hyaluronic acid loze nges- at night (bedtime) and/or middle of night- 2. humidifier run nightly- to reduce eff ects of dry winter air 3. side sleeping- may help with closeing mouth- put pillow between knee- ask Kulwinder Azar PT about this 4. plaeofiber RS- doesnt mix well bc res istent starch- use in blended or shake vigorously- start with 1/2 scoop/day- for 1 week then try 1 scoop/day- if joints are achey after 2 weeks then reduce to once every 4 days we will discuss how this works for you n ext visit and discuss final results of stool samples sent in 1. list of resistent- starches-legu mes, raw oats, yams, chick peas, banana slightly green, brown rice, corn tortillas, 2 diet diary- sent in email attachment 3. return to go over diet to work on hig h fiber 4. GI fortify [id number] do not let sit in water/liquid too long or gets thick and sludgy drink additional 10-12 oz water after gi fortify drink. Ideally before you leave for work or eat and after you eat the last meal take with ther-biotic 1 cap 2xday get retesting done from [employer] 1. green tea- powder packs- bring s amples in for you to try- 2. stool analysis- Gi health 3. August- Refer to Kulwinder Mariee for tinnitus- and knee pain visit with DR. Fan? did we discuss? 4. No sugar- no candy- fruit and veggies more frequently this will help raise WBC and keep immune system working properly as well as aid in weight loss protein snacks- nuts with fruit 1. CAll Dr. Fan office to get appt for meniscal tear and posterior debris- and increased inflammation and pain- 2. Green tea caps- 2 caps 1 cap vit E /day theracurmin 1 cap 2xday- selenomet- 1 cap /day calcium-d glucarate 1 cap 2xday Diet: paeloreds and paleo greens in addition t o a diet high in fruit and veggies- eat fish and discourage animal proteins legumes- and nuts are ok- alternative to cheese sandwiches- GET BLOODWORK ABOVE!! I can draw Mondays 7am-10 if your veins are easy- and send out to [facility]- there is a 20$ draw fee for this- call for appt. Reminders Provider Appointments None recorded. ? ? Lab None recorded. ? ? Referral None recorded. ? ? Procedures None recorded. ? ? Surgeries None recorded. ? ? Imaging None recorded. ? ? Vitals 09/06/2021 02:15PM ESTABLISHED PATIENT 46 Weight 151 lbs 08/01/2021 02:30PM ESTABLISHED PATIENT 46 Weight Blood Pressure 151 lbs 116/68 mm[Hg] 06/14/2021 08:00AM ESTABLISHED PATIENT 45 Weight Blood Pressure 151 lbs 108/72 mm[Hg] 12/19/2020 08:00AM ESTABLISHED PATIENT 45 Blood Pressure 116/68 mm[Hg] 08/03/2020 08:00AM ESTABLISHED PATIENT 45 Blood Pressure 130/64 mm[Hg] 05/30/2020 08:00AM ESTABLISHED PATIENT 45 Weight Blood Pressure 142 lbs 118/78 mm[Hg] 01/12/2019 12:15PM ESTABLISHED PATIENT 45 Weight Blood Pressure 140 lbs 16 oz 114/76 mm[Hg] 09/30/2018 12:30PM ESTABLISHED PATIENT 30 Weight Blood Pressure 138 lbs 12.8 oz 116/66 mm[Hg] 09/03/2017 08:30AM ESTABLISHED PATIENT 30 Height Weight BMI 5 ft 3 in 135 lbs 23.9 kg/m2 08/06/2017 09:30AM ESTABLISHED PATIENT 30 Height Weight BMI 5 ft 3 in 135 lbs 16 oz 24.1 kg/m2 12/26/2016 11:30AM ESTABLISHED PATIENT 30 Height Weight BMI 5 ft 3 in 138 lbs 24.4 kg/m2 04/12/2016 04:30PM ESTABLISHED PATIENT 30 Height Weight BMI 5 ft 3 in 139 lbs 24.6 kg/m2
[2021-10-19 13:35] VITALS: BP 114/74; PULSE 89; RESP 18; TEMP 36.4; O2SAT 99
--- NOTE | 2021-10-19 13:41 | ED.GENADUL_ITS ---
Discharge Plan Disposition Patient Disposition: HOME Condition: Stable Discharge Details Clinical Impression: Distal radial fracture Primary Care Provider: Beatris Saeed ED Provider: Casandra Soto Home Meds and New Rx's Prescriptions: Continued multivitamin [Daily Multi-Vitamin] Tablet 1 tab PO DAILY RF: 0 glucosamine sulfate [Glucosamine] 500 mg tablet 500 mg PO DAILY RF: 0 Discharge Instructions Instructions: Wrist Fracture in Adults (ED) Additional Instructions: You have a displaced fracture of your distal radius. Please encourage rest, ice, elevation. Tylenol and ibuprofen as needed for discomfort. Please keep splint on until evaluated by orthopedics. Please continue with the sling to help support the arm. Please call orthopedics Friday morning to schedule follow-up appointment. Number listed below. If develop fever/chills, pain or other new/worsening symptoms seek care urgently once again Referrals: Beatris Saeed [Primary Care Provider] - Nicholas Martines MD [ [facility] STAFF PHYSICIAN] - Discharge Data Discharge Date/Time-TO BE ENTERED AT DEPARTURE: 10/19/21 16:40 Medical Decision Making Patient is a pleasant eplaj-jouj-siwvkhaw 61-year-old female presenting today with chief complaint of left wrist pain. She reports a prior to arrival she was stepping onto a sled to go downhill when she slipped and fell on her outstretched left hand. She denies other injury at the time of the incident. Denies any numbness or tingling. Has deformity and pain to the distal radius. No history of fracture. Patient does have significant osteoarthritis and deformities noted to her fingers which she states is chronic. She denies any significant pain at this time, no pain radiating proximally. On exam, patient appears nontoxic. She has notable deformity to the distal radius. No pain over the anatomical snuffbox and no pain with axillary thumb loading. However, I did closeness to the navicular bone that I do feel that imaging this is well is appropriate. She is 2+ distal pulses. Sensation is intact. She is able to move all of her fingers and extend the thumb. No pain proximally, no pain with movement of the elbow. No break in the skin. She does have a small burn proximal along the anterior surface of the forearm but this does not appear to be associated with the presumed fracture site. We will obtain x-rays and give Tylenol and ibuprofen help discomfort. XR reviewed, patient has displaced distal radius fracture consistent with the notable deformity. Discussed with patient. She and I discussed risks/benefits and expected procedural steps of closed reduction. XR reviewed by radiologist: FINDINGS: Bones/joints: There is acute comminuted fracture involving the distal radius with moderate displacement of fracture lines along the medial, lateral, volar and dorsal cortices, along with extension to the radial articular surface. The fracture is also moderately posteriorly angulated. No other fracture is identified. The joint spaces are normally aligned. Moderate osteophyte formation is present about the 1st carpometacarpal joint. Soft tissues: There is associated soft tissue swelling. IMPRESSION: 1. Acute distal radial fracture. 2. Degenerative changes as described. Consent obtained for reduction. She and I discussed anesthetic at length, patient would like to forgo any type of anesthesia. She was offered oral analgesics, IM analgesics, sedation, hematoma block and she declined. She advised she will focus on prayer. Please see procedure note. Patient tolerated this very well. Sugar tong splint applied after reducation. Still neurovascularly intact after reducation and application of splint. Post reduction film obtained: FINDINGS: Tubes, catheters and devices: There has been interval placement of a fiberglass splint. Bones/joints: Previous distal radial fracture has been partially reduced with improved anatomic alignment, including decreased, now mild displacement and minimal residual posterior angulation. No other fracture is identified. The joint spaces are normally aligned. Soft tissues: There is again associated soft tissue swelling. IMPRESSION: Interval reduction and splinting of distal radial fracture since earlier the same day. Discussed with patient. Fit with sling. Advised this has high likelihood to require surgical intervention. We do not have orthopedics transfer station attendant now and I do not see emergent need for intervention by them. However, I advised she call first thing Friday morning as she will need prompt follow up. Strict return precautions given to the patient. Encouraged RICE. Discussed pain management, she will use APAP and Ibuprofen for pain. All of her questions and concerns were addressed, she is in agreement with this plan. HPI General Mode of arrival: ambulatory . Date/Time Provider Initiated Documentation: 10/19/21 13:41 . Limitations to Documentation: no limitations . Information obtained by: patient, family (josé) and RN notes reviewed . History of Present Illness 61 year old F presents to the emergency department with the chief complaint of left wrist pain, described as severe, Quality is described as aching, and is localized to the left and upper extremity. Patient reports no radiation. Patient started experiencing this minute(s) and it has been constant. Immobilization improves symptom(s), Movement worsens symptoms . Patient notes no other symptoms.. Patient did receive the following treatments prior to arrival, none Related Data Home Medications Medication Instructions Recorded Confirmed glucosamine sulfate 500 mg tablet 500 mg PO DAILY 07/17/21 10/19/21 multivitamin 1 tab PO DAILY 07/17/21 10/19/21 Allergies Allergy/AdvReac Type Severity Reaction Status Date / Time No Known Allergies Allergy Verified 10/19/21 13:38 General Stated Complaint: Orthopedic ZACH: 3 Review of Systems Constitutional Constitutional: Reports as per HPI, Denies chills, Denies fever(s), Denies headache(s) and Denies weakness ENT Ears, Nose, Mouth, and Throat: Denies headache(s) Cardiovascular Cardiovascular: Reports as per HPI Respiratory Respiratory: Reports as per HPI Musculoskeletal Musculoskeletal: Reports as per HPI and Denies tingling Integumentary/Breasts Skin/Breast: Reports as per HPI, Denies rash and Denies wounds Neurologic Neurologic: Reports as per HPI, Denies headache(s), Denies tingling, Denies paresthesias and Denies weakness PFSH All Active Problems (Updated 10/19/21 @ 15:36 by ROSARIO Small[place]) Distal radial fracture (Acute) Unilateral primary osteoarthritis, left knee (Acute) Arthritis (Acute 07/11/16) Surgical History (Updated 08/12/18 @ 14:33 by TR [facility]) section X 2 Family History Mother Diabetes Father TB (tuberculosis) Social History Smoking/Tobacco Use Status: Never Smoking risk assessment performed?: Yes Alcohol Intake: current Alcohol Intake frequency: holidays/special occasions only Drug use: Never Substance use type: does not use Do you feel safe at home: Yes Do you feel safe in your relationship?: Yes History History 2 Para 2 Hx # Term Pregnancies Multiple births Hx # Pregnancies Ectopic pregnancies AB induced Hx Number of Living Children AB spontaneous Exam Const General: cooperative, healthy appearing, uncomfortable (appears uncomfortable, splinting left arm), no acute distress, well developed and well groomed Nutritional Appearance: average body habitus and well nourished Orientation: alert and awake Resp Effort & Inspection: normal respiratory effort, able to speak in complete sentences and no respiratory distress Cardio Rate: regular rate Rhythm: regular rhythm Skin General skin exam: other (small burn, superficial, no deep opening. Healing well) Trauma: no lacerations or abrasions Neuro General: patient alert and patient awake Cognition: normal cognition Speech: speech normal Gait: normal gait Motor: muscle tone normal throughout Sensory Exam: no sensory deficits noted Extrem Left upper extremity: normal capillary refill, elbow/forearm Details: normal to inspection, normal ROM and distal pulses intact; no tenderness, no swelling and no deformity, wrist Details: abnormal to inspection Details: obvious deformity, tenderness Location: of the distal radius, swelling Location: of the dorsal wrist, ecchymosis (anterior distal radius), deformity, normal vascular exam and radial pulse present; no unusual warmth and no crepitus and hand Details: normal to inspection, normal capillary refill, neuromotor exam normal Details: thumb opposition normal, thumb IP flexion normal, thumb ADduction normal and fingers 2-5 ABduction normal, neurosensory exam normal, tendon exam normal, vascular exam Details: radial pulse present and normal capillary refill, normal ROM of fingers and no swelling; no tenderness, no swelling, no ecchymosis and no crepitus Psych Appearance: grossly normal and well kempt Mental Status: mental status grossly normal Speech and Movement: speech and movement normal Course Vital Signs Vital signs: Vital Signs Temperature 36.4 C L 10/19/21 13:35 Pulse 89 10/19/21 13:35 Respiratory Rate 18 10/19/21 13:35 Blood Pressure 114/74 10/19/21 13:35 Pulse Oximetry 99 10/19/21 13:35 Temperature 36.4 C L 10/19/21 13:35 Temperature Source Temporal Artery Scan 10/19/21 13:35 Pulse 89 10/19/21 13:35 Respiratory Rate 18 10/19/21 13:35 Blood Pressure 114/74 10/19/21 13:35 Blood Pressure Position Sitting 10/19/21 13:35 Pulse Oximetry 99 10/19/21 13:35 Oxygen Delivery Method Room Air 10/19/21 13:35 Oxygen Flow Rate 0 10/19/21 13:35 Procedures Orthopedic Fracture Reduction Fracture #1: Time Out Performed: Yes Side: left Fracture Reduction Location: radius Analgesia: none (patient declined analgesia) Technique: direct manipulation and finger traps Post Reduction X-rays Demonstrate: acceptable reduction Post-reduction neuro exam: intact and no change Post-reduction vascular exam: intact and no change Splint Applied: Yes Patient Tolerated Procedure: well and no complications
[2021-10-19] MEDS: Ibuprofen 600 MG TAB PO (14:04)
[2021-10-19] MEDS: Acetaminophen 325 MG TAB 650 MG PO (14:04)
--- NOTE | 2021-10-19 15:15 | DI.RAD_ITS ---
Exam(s) XR WRIST LT LIMITED EXAM: XR WRIST LT LIMITED CLINICAL HISTORY: s/p reducation. TECHNIQUE: 2D digital imaging was performed. COMPARISON: CR,XR XR WRIST LT COMP NAVICULAR from 10/19/2021 FINDINGS: Post closed reduction in cast views reveals previously described distal radius fracture with the impr fifi alignment of the fracture fragments. No significant ulnar variance. IMPRESSION: DATA REPOSITORY: RADIATION DOSE DELIVERED:
--- NOTE | 2021-10-19 15:26 | DI.VRAD_ITS ---
PROCEDURE INFORMATION: Exam: XR Left Wrist Exam date and time: 10/19/2021 1:42 PM Age: 61 years old Clinical indication: Other: Foosh TECHNIQUE: Imaging protocol: XR Left wrist. Views: 3 or more views. COMPARISON: CR ARTHITIS SERIES-VINAY HAND WRIST 08/20/2017 7:50 AM FINDINGS: Bones/joints: There is acute comminuted fracture involving the distal radius with moderate displacement of fracture lines along the medial, lateral, volar and dorsal cortices, along with extension to the radial articular surface. The fracture is also moderately posteriorly angulated. No other fracture is identified. The joint spaces are normally aligned. Moderate osteophyte formation is present about the 1st carpometacarpal joint. Soft tissues: There is associated soft tissue swelling. IMPRESSION: 1. Acute distal radial fracture. 2. Degenerative changes as described. Dictated and Authenticated by: Brown Cabrales MD. Ordering:QUYEN Guajardo MD
--- NOTE | 2021-10-19 15:35 | DI.VRAD_ITS ---
PROCEDURE INFORMATION: Exam: XR Left Wrist Exam date and time: 10/19/2021 3:19 PM Age: 61 years old Clinical indication: Other: S/P reduction TECHNIQUE: Imaging protocol: XR Left wrist. Views: 1 or 2 views. COMPARISON: CR XR WRIST LT COMP NAVICULAR 10/19/2021 2:29 PM FINDINGS: Tubes, catheters and devices: There has been interval placement of a fiberglass splint. Bones/joints: Previous distal radial fracture has been partially reduced with improved anatomic alignment, including decreased, now mild displacement and minimal residual posterior angulation. No other fracture is identified. The joint spaces are normally aligned. Soft tissues: There is again associated soft tissue swelling. IMPRESSION: Interval reduction and splinting of distal radial fracture since earlier the same day. Dictated and Authenticated by: Brown Cabrales MD. Ordering:QUYEN Guajardo MD
== END 2021-10-19 16:40 | disposition home or self-care (01) ==
PROVIDERS: Emergency Provider Physician Assistant; PCP Naturopath
DX: S52.592A Other fractures of lower end of left radius, initial encounter for closed fracture (principal); W00.0XXA Fall on same level due to ice and snow, initial encounter
CPT/HCPCS: 25605; 73100; 73110

== ENCOUNTER 2021-10-22 12:32 | Outpatient (CLI) | payer BC, SELFPAY ==
[2021-10-22 14:25] LABS: Source Nasal/Nares
[2021-10-22 15:14] LABS: COVID-19 PCR Negative (Negative)
== END 2021-10-22 12:33 | disposition home or self-care (01) ==
LOC: LBO 12:32
PROVIDERS: PCP Naturopath; Visit Provider Student in an Organized Health Care Education/Training Program
DX: Z20.822 Contact with and (suspected) exposure to COVID-19 (principal); Z01.818 Encounter for other preprocedural examination
CPT/HCPCS: 87635

== ENCOUNTER 2021-10-23 11:16 | Day surgery (SDC) | payer BC, SELFPAY ==
[2021-10-23] VITALS (8 sets, daily range): BP systolic 108–135; BP diastolic 73–108; PULSE 77–84; RESP 13–16; TEMP 36.4–37.1; O2SAT 96–98; BMI 26.2
[2021-10-23] MEDS: ceFAZolin 2 GM/50 ML BAG IVPB (01:41)
--- NOTE | 2021-10-23 09:50 | W.ANESPRE ---
General Info Date of Service Date Performed: 10/23/21 Height: 5 ft 3 in Weight: 67.132 kg Body Mass Index (BMI): 26.2 Surgical Procedure: Operation Date: 10/23/21 15:10 Proposed Procedures Side Surgeon p Wrist ORIF Distal Radius Left Austin Fan MD Meds Allergies and Home Medications Allergies Allergy/AdvReac Type Severity Reaction Status Date / Time No Known Allergies Allergy Verified 10/23/21 11:52 Home Medication Medication Instructions Recorded glucosamine sulfate 500 mg tablet 500 mg PO DAILY 07/17/21 multivitamin 1 tab PO DAILY 07/17/21 acetaminophen [Tylenol Extra 500 mg PO QID PRN 10/23/21 Strength] ibuprofen 600 mg PO QID 10/23/21 dakzjhh-tgbq-jkhxz-oreg-capryl cap PO 10/23/21 Current Visit Medications: Current Medications Generic Name Dose Route Start Last Admin Trade Name Freq PRN Reason Stop Dose Admin Ringer's Solution 1,000 mls @ 80 mls/hr 10/23/21 06:00 IV 11/21/21 23:59 INFUSION SEKOU Cefazolin Sodium/Dextrose 2 gm in 50 mls @ 100 mls/hr 10/23/21 06:00 Ancef Duplex IVPB 10/23/21 16:00 PREOP SEKOU IV Miscellaneous Supplies 1 each 10/23/21 06:00 Iv Access IV 11/21/21 23:59 DIRECTED SEKOU Sodium Chloride 0 ml 10/23/21 06:00 Normal Saline Flush 10 Ml Syr IV 11/21/21 23:59 PRN PRN Sodium Chloride 0 ml 10/23/21 06:00 Normal Saline 10 Ml Vial IJ 11/21/21 23:59 DIRECTED PRN Sterile Water 0 ml 10/23/21 06:00 Water,Injection,Sterile 10 Ml Vial IJ 11/21/21 23:59 DIRECTED PRN PFSH Active Problems Active Problems: Problem Status Onset Code Closed fracture of left distal radius S52.502A Unilateral primary osteoarthritis, left knee M17.12 Arthritis 07/11/16 M19.90 Medical History Medical History (Updated 10/23/21 @ 11:56 by Glo Flanagan) Hx of chronic arthritis Hx of chronic arthritis Surgical History Surgical History (Updated 10/23/21 @ 11:55 by Glo Flanagan) section X 2 Hx of colonoscopy Tobacco Smoking/Tobacco Use Status: Never Alcohol Alcohol Intake: current Alcohol intake frequency: holidays/special occasions only Substance Use Substance use: Never Substance use type: does not use Prental History History 2 Para 2 Hx # Term Pregnancies Multiple births Hx # Pregnancies Ectopic pregnancies AB induced Hx Number of Living Children AB spontaneous Vital Signs and Lab Results Vital Signs Most Recent Vital Signs in EMR: Temp Pulse Resp BP Pulse Ox 36.4 C L 83 16 108/79 97 10/23/21 12:00 10/23/21 12:00 10/23/21 12:00 10/23/21 12:00 10/23/21 12:00 Lab Results Blood Type / Crossmatch: No Data to Display Complete Blood Count: No Data to Display Complete Metabolic Panel: No Data to Display Liver Function Panel: No Data to Display Coagulation Panel: No Data to Display Cardiac Panel: No Data to Display Arterial Blood Gas: No Data to Display Venous Blood Gas: No Data to Display Pancreas Panel: No Data to Display Thyroid Panel: No Data to Display Infectious Disease: Coronavirus (COVID-19)(PCR) Negative (Negative) 10/22/21 12:55 10/22/21 Coronavirus 2019 Source Nasal/Nares 10/22/21 12:55 10/22/21 Blood Cultures: No Data to Display Toxicology Panel: No Data to Display Imaging and Studies Imaging and Studies Study information below may be from another EMR and interpreted by another provider. Please see original notes in EMR for more complete details. EKG Summary: 02/14: sr, consider LVH. Echocardiogram Summary: 06/2021: LVEF 60-65%, RVSP 21 mmhg, Anesthesia Assessment and Plan Anesthesia History Personal History: No History of Anesthesia Complications Family History: No Family History of Anesthesia Complications Exercise Tolerance Exercise Tolerance: Metabolic Equivalents>4 Cardiac & Pulmonary Exam Cardiac Exam: Normal S1/S2 Heart Sounds Pulmonary Exam: Clear Bilateral Breath Sounds Implantable Cardiac Device Does patient have a Pacemaker or an ICD?: No Airway Exam Known Difficult Airway: No Mallampati Class: 2 Mouth Opening: Normal (> 3cm) Thyromental Distance: Greater than 3 cm Neck Range of Motion: Full ROM Neck Circumference: Normal Teeth Condition: Normal Dentition ASA Classification ASA Score: ASA 2 Emergency Case?: No NPO Status NPO Status: NPO Clears >2 hours, Solids >8 hours Anesthesia Plan Resuscitation Status: Full Code Anesthesia Technique: General Anesthesia Airway Planned: LMA Pain Management: Surgeon and patient request nerve block Monitors Used: Standard Monitors Preoperative Comments:: 61 yo female for ORIF wrist fracture. Sig PMHx: never smoker, occ EtOH,
[2021-10-23] MEDS: Lactated Ringers 1,000 ML 80 ML IV (12:00)
--- NOTE | 2021-10-23 13:16 | HPE_ITS ---
Assessment and Plan Assessment and plan (1) Closed fracture of left distal radius: Status: Acute Assessment and plan: Kathy is a 61-year-old who had a fall and suffered a comminuted, intra-articular, and displaced distal radius fracture about the left wrist. I 1 discussion of treatment options with her and given his displacement I would recommend least repeat close reduction. Given the intra- articular components and her young age and active lifestyle, fixation would be a more definitive approach to ensure that this stays in appropriate position. I reviewed the technical details of each. I discussed the risk of operative fixation including bleeding, infection, pain, stiffness, damage to nerves and vessels, damage to muscle and tendons, hardware prominence, tendon irritation or rupture, malunion, nonunion, need for repeat procedures. Despite these risk, she elects to proceed. Qualifiers: Encounter type: initial encounter Fracture morphology: other intra- articular Qualified Code(s): S52.572A - Other intraarticular fracture of lower end of left radius, initial encounter for closed fracture History of Present Illness History of Present Illness Chief Complaint: Left Intra-articular Distal Radius Fracture Narrative: Kathy is an active 61-year-old ursso-sxqv-chbovqyp female who fell over the [employer] landing onto an outstretched left hand. She had immediate pain and deformity and was seen in the emergency department. She had a significantly displaced intra-articular distal radius fracture that was closed reduced. There is still some residual dorsal translation and angulation along with the intra-articular split. I was not on- call the time but was informed about the fracture I did discuss the case with Kathy. Over the phone I recommended repeat closed reduction and casting versus operative fixation. I discussed those 2 options with her over the phone and she desired to proceed with operative fixation. She is here for that today. She denies numbness or tingling. She denies any significant pain. She denies any injury to her elbow or shoulder. She is otherwise in good health without any acute medical issues. She is COVID-19 negative. Review of Systems All systems reviewed & are unremarkable except as noted in HPI and below PFSH All Active Problems (Updated 10/23/21 @ 13:19 by Austin Fan MD) Arthritis (Acute 07/11/16) Unilateral primary osteoarthritis, left knee (Acute) Closed fracture of left distal radius (Acute) Medical History Hx of chronic arthritis Hx of chronic arthritis Surgical History section X 2 Hx of colonoscopy Family History Mother Diabetes Father TB (tuberculosis) Social History Smoking/Tobacco Use Status: Never Smoking risk assessment performed?: Yes Alcohol Intake: current Alcohol Intake frequency: holidays/special occasions only Alcohol type: wine and hard liquor Drug use: Never Substance use type: does not use Details: alcohol: weeks Do you feel safe at home: Yes Do you feel safe in your relationship?: Yes History History 2 Para 2 Hx # Term Pregnancies Multiple births Hx # Pregnancies Ectopic pregnancies AB induced Hx Number of Living Children AB spontaneous Meds Allergies and Home Medications Allergies Allergy/AdvReac Type Severity Reaction Status Date / Time No Known Allergies Allergy Verified 10/23/21 11:52 Home Medications Medication Instructions Recorded Confirmed Type glucosamine sulfate 500 mg tablet 500 mg PO DAILY 07/17/21 10/23/21 History multivitamin 1 tab PO DAILY 07/17/21 10/23/21 History acetaminophen [Tylenol Extra 500 mg PO QID PRN 10/23/21 10/23/21 History Strength] ibuprofen 600 mg PO QID 10/23/21 10/23/21 History spntiyh-fpjh-wqcdd-oreg-capryl cap PO 10/23/21 History Exam Resp Effort & Inspection: normal respiratory effort Auscultation: clear to auscultation bilaterally Cardio Rate: regular rate Rhythm: regular rhythm Extrem Other: Left arm is in a splint. Fingers are warm and well perfused with capillary refill less than 2 seconds. She is able to actively flex and extend the fingers as well as the thumb. Sensation intact light touch of the median, radial, ulnar nerve. Results Imaging Imaging Studies: X-ray of the left wrist was reviewed. This shows intra-articular fracture with 3 epiphyseal component and continued dorsal angulation and displacement. Last Vital Signs Temp 36.4 C L 10/23/21 12:00 Pulse 83 10/23/21 12:00 Resp 16 10/23/21 12:00 BP 108/79 10/23/21 12:00 Pulse Ox 97 10/23/21 12:00
--- NOTE | 2021-10-23 15:15 | PDOC.DSDIS_ITS ---
Discharge Plan Disposition Patient Disposition: HOME Condition: Good Discharge Details Reason For Visit: (L) DISTAL RADIUS FX Attending Provider: Austin Fan Primary Care Provider: Beatris Saeed Home Meds and New Rx's Prescriptions: New hydrocodone-acetaminophen 5-325 mg tablet 1 tab PO Q4H PRN (Reason: pain) Qty: 10 RF: 0 Continued multivitamin [Daily Multi-Vitamin] Tablet 1 tab PO DAILY RF: 0 glucosamine sulfate [Glucosamine] 500 mg tablet 500 mg PO DAILY RF: 0 xvcjwbn-zglo-hamaj-oreg-capryl 100 mg-150 mg- 50 mg-150 mg Capsule PO RF: 0 ibuprofen 600 mg Tablet 600 mg PO QID Qty: 60 RF: 0 acetaminophen 500 mg Capsule 500 mg PO QID PRNQty: 60 RF: 0 Discharge Instructions Additional Instructions: Wrist Fracture Fixation Discharge Instructions Activity: You should keep the hand/wrist elevated as much as possible for the first few days. You may use the other fingers as tolerated but avoid trying to do too much too soon. You may perform light activities with the splint in place. Dressing/Cast: Your splint should stay in place at all times. Do NOT get it wet. You may loosen the NICKY wrap if you feel it is too tight and then rewrap more loosely. Medications: - You should take Tylenol and Ibuprofen for baseline pain control. - You have been prescribed a stronger pain medication, Hydrocodone, for breakthrough pain. - You may apply ice over the wrist, just double bag so it doesn't get wet. Follow-up: 10-14 days If you have any acute concerns or questions, please do not hesitate to contact the office at [phone]. You may contact Dr. Fan with any questions after hours through the hospital at [phone] or on his cell phone at [phone]. Referrals: Austin Fan MD [ [facility] STAFF PHYSICIAN] - Equipment/Supplies: Splint Activity:: Elevate Remove Dressings/Wound Care:: 72 hours Shower/Bathe:: 72 hours Diet:: As Tolerated Discharge Orders Discharge Orders: Discharge Order (Routine); Ordered 10/23/21 Ordered By: Austin Fan DS: Diagnosis Discharge Diagnosis (1) Closed fracture of left distal radius: Status: Acute
--- NOTE | 2021-10-23 15:15 | DI.RAD_ITS ---
Exam(s) XR WRIST LT LIMITED EXAM: XR WRIST LT LIMITED CLINICAL HISTORY: FRACTURED LEFT WRIST TECHNIQUE: 2D and realtime digital imaging was performed. COMPARISON: No exams were available for comparison FINDINGS: C-arm fluoroscopy was utilized by Dr. Fan during open reduction and internal fixation of distal radius fracture fragments. Hard copy show plate and screw fixation in place. IMPRESSION: RADIATION DOSE DELIVERED: Kar=1.1 mGy
--- NOTE | 2021-10-23 15:36 | W.ANESPOSTOP ---
Postoperative Evaluation Date, Time and Location Date Performed: 10/23/21 Time Performed: 15:36 Patient Location: PACU Vital Signs Most Recent Imported Vital Signs: Most Recent Vital Signs Temp Pulse Resp BP Pulse Ox 36.6 C 81 15 113/82 96 10/23/21 15:24 10/23/21 15:24 10/23/21 15:24 10/23/21 15:24 10/23/21 15:24 Pain Score Most Recent Pain Score: Most Recent Pain Score Pain Level 2 10/23/21 15:24 Assessment Mental Status: Arousable with meaningful communication Airway and Respiratory Function: Patent airway with normal (patient baseline) respiratory exam Cardiovascular Function: Hemodynamically Stable Hydration Status: Adequately Hydrated Nausea & Vomiting: No Nausea or Vomiting Pain: Pain is tolerable per patient Peripheral Nerve Block: Patient did not receive a nerve block
--- NOTE | 2021-10-23 21:34 | ROE_ITS ---
Date of service: 10/23/21 Time of Service: 15:24 Operative Note Operative Note DATE OF PROCEDURE: 10/24/21 PRE-OP DIAGNOSIS: Left Distal Radius Fracture POST-OP DIAGNOSIS: same PROCEDURE: Open Reduction and Internal Fixation of Left Distal Radius SURGEON: Austin Fan SITE ACQUISITION SPECIALIST: Debra Guzman ANESTHESIA TYPE: General LMA/ETT Refer to Anesthesia Record ESTIMATED BLOOD LOSS: 10 PATHOLOGY: none sent TOURNIQUET TIME: 61 COMPLICATIONS: None Patient was transported to: PACU Patient's condition: stable Indications: Kathy is a 61 year old female who I have seen for a distal radius fracture. Given the deformity, displacement, fracture pattern, and effect on daily function, I recommended surgical fixation. I reviewed the risk of the procedure to include bleeding, infection co-pay, stiffness, damage to nerves and vessels, damage to muscles and tendons, malunion, nonunion, hardware prominence, tendon rupture, need for repeat procedures. Despite these risks, the patient elected to proceed. Findings: There is a distal radius fracture which had 4 parts. Provisional reduction was obtained with k-wires and then it was fixed with a Synthes volar locking plate. Procedure Description: Kathy was greeted in the preoperative holding area. The correct patient and site was confirmed and marked. The history and physical was updated. The consent was reviewed the patient and signed. The patient was taken to the PACU for administration of regional anesthetic, supraclavicular block. The patient was taken to the operating room and placed in the supine position. All bony problems were well-padded. The left arm was placed onto a radiolucent hand table. A nonsterile tourniquet was placed high up on the arm. Prophylactic antibiotics in the form of cefazolin were administered. The left arm was prepped with ChloraPrep and draped in a standard fashion. A timeout was performed for safe surgery. A standard longitudinal incision was made overlying the flexor carpi radialis tendon starting at the distal wrist crease and moving proximally. The skin was incised sharply. The flexor carpi radialis tendon and its sheath is identified. The sheath was opened. The tendon was moved ulnarly in the floor of the sheath was incised. Blunt dissection the flexor pollicis longus muscle belly and tendon were also made radially exposing the pronator quadratus and the distal radius. The pronater quadratus was elevated with an ulnar-based flap. This exposed the volar distal radius and the fracture. There was some mild comminution at the radial edge and there was a split seen extending distally over the ulnar 1/3. A walker elevator was used for full exposure of the volar surface of the distal radius. The primary fracture line was exposed. Using a series of elevators, curettes, and knife, the fracture was fully debrided of any fibrous tissue and callus formation. I used a freer elevator to help mobilize the fragments. This allowed me to shoe-horn the distal fracture block on top of the radial shaft. Ulnarly this was perfectly reduced. The comminution radially made it difficult to asses the reduction but fluoroscopy confirmed appropriate positioning. THe radial styloid component was well aligned so I placed 2 k-wires into the distal segment to secure its pieces and secure these to the shaft. Fluoroscopic images were used to confirm adequate reduction. A narrow 3 hole Synthes volar locking plate was then placed onto the bony surface of the distal radius. Was then held there with a distal radius clamp sandwiching the plate to the distal segment. A single K wire was placed through the distal end. Fluoroscopy was once again used to confirm appropriate positioning of the plate on the distal radius. A reduction K wire was placed into the slotted hole on the shaft but not tightened all the way to allow for manipulation of the distal segment onto the proximal shaft. A single nonlocking screw was placed to the distal portion of the plate securing the plate against the bone of the distal radial metaphysis. Unfortunately this had minimal bite, so I proceeded with a locking screw in the distal row, making sure the plate was reduced on to the bony surface of the radius. These first two screws were checked to make sure it was in appropriate positioning for trajectory of future screws. The remainder of the screws within the volar locking plate were filled with locking screws. These were made sure not to penetrate the dorsal cortex. Once these were applied the proximal portion of the plate was further reduced down onto the shaft, which further reduce the distal segment. This was held in position with a tightened reduction K wire. Fluoroscopy was then used against confirm appropriate reduction. Nonlocking screws were placed within the 3 shaft screw holes. Final x-rays were obtained which demonstrated adequate reduction and positioning of hardware. The proximal aspect of hte plate had seemed to angle ulnarly but the distal reduction was very acceptable so this was kept where it was. The dorsal sunrise view was also obtained to ensure correct sizing of screws. One screw was substituted for 2mm shorter one. The wound was then thoroughly irrigated. The pronator quadratus was reapproximated with a 0 Vicryl. The tourniquet was released and there was no notable vascular injury. The fingers were warm and well-perfused. The deep dermal layer was closed with a 2-0 Vicryl. The skin was closed with 4-0 nylon. The wound was dressed with Xeroform, 4 x 4's, web roll. A short arm splint was applied. At the end the case all counts are correct. Patient was transferred back to the PACU in stable condition.
== END 2021-10-23 17:17 | disposition home or self-care (01) ==
PROVIDERS: PCP Naturopath; Visit Provider Student in an Organized Health Care Education/Training Program
PROC: (CPT 25609; principal; 2021-10-23 15:00)
DX: S52.572A Other intraarticular fracture of lower end of left radius, initial encounter for closed fracture (principal); X58.XXXA Exposure to other specified factors, initial encounter
CPT/HCPCS: 25609; C1713; 73100; J0131; J0690; J1100; J1885; J2250; J2405; J2704

== ENCOUNTER 2021-11-05 11:46 | Outpatient (CLI) | payer BC, SELFPAY ==
--- NOTE | 2021-11-05 11:50 | DI.RAD_ITS ---
Exam(s) XR WRIST LT LIMITED EXAM: XR WRIST LT LIMITED INDICATION: 1ST POST OP ORIF L WRIST. COMPARISON: CR,XR XR WRIST LT LIMITED from 10/19/2021 XR WRIST LT LIMITED from 10/23/2021 TECHNIQUE: 2D digital imaging was performed. FINDINGS: Volar fixation plate remains in place along the distal radius for fracture fixation. There has been no change in fracture or hardware alignment. No new abnormalities. Advanced degenerative changes ar e again noted at the 1st carpal metacarpal joint and interphalangeal joints. DATA REPOSITORY: RADIATION DOSE DELIVERED:
== END 2021-11-05 11:47 | disposition home or self-care (01) ==
LOC: DIORS 11:46
PROVIDERS: PCP Naturopath; Referring Provider Naturopath; Visit Provider Physician Assistant Surgical
DX: S52.572D Other intraarticular fracture of lower end of left radius, subsequent encounter for closed fracture with routine healing (principal); X58.XXXD Exposure to other specified factors, subsequent encounter
CPT/HCPCS: 73100

== ENCOUNTER 2021-12-03 11:15 | Outpatient (CLI) | payer BC, SELFPAY ==
--- NOTE | 2021-12-03 10:45 | DI.RAD_ITS ---
Exam(s) XR WRIST LT LIMITED EXAM: XR WRIST LT LIMITED CLINICAL HISTORY: f/u left distala radius fracture. TECHNIQUE: 2D digital imaging was performed. COMPARISON: CR XR WRIST LT LIMITED from 11/05/2021 FINDINGS: Again noted is a volar fixation plate in the distal radius there appears to be some further healing. No loosening of the hardware. No radiographic evidence of osteomyelitis. No significant ulnar vari ance. Incidentally noted are advanced degenerative changes in the 1st carpometacarpal joint, unchanged. No erosions. IMPRESSION: DATA REPOSITORY: RADIATION DOSE DELIVERED:
== END 2021-12-03 11:16 | disposition home or self-care (01) ==
LOC: DIORS 11:15
PROVIDERS: PCP Naturopath; Referring Provider Naturopath; Visit Provider Student in an Organized Health Care Education/Training Program
DX: S52.592D Other fractures of lower end of left radius, subsequent encounter for closed fracture with routine healing (principal); W00.0XXD Fall on same level due to ice and snow, subsequent encounter
CPT/HCPCS: 73100

== ENCOUNTER 2022-01-14 10:49 | Outpatient (CLI) | payer BC, SELFPAY ==
--- NOTE | 2022-01-14 10:00 | DI.RAD_ITS ---
Exam(s) XR WRIST LT LIMITED EXAM: XR WRIST LT LIMITED CLINICAL HISTORY: S/P ORIF L DISTAL RADIUS FRACTURE. TECHNIQUE: 2D digital imaging was performed. COMPARISON: CR XR WRIST LT LIMITED from 12/03/2021 FINDINGS: 3 views Again noted is a volar fixation plate in the distal radius. There has been some healing the distal r adial fracture although the fracture lines are still faintly visible. No hardware loosening nor migr ation. No radiographic evidence of osteomyelitis. Distal ulna appears unremarkable. Scaphoid unrem arkable. IMPRESSION: DATA REPOSITORY: RADIATION DOSE DELIVERED:
== END 2022-01-14 10:50 | disposition home or self-care (01) ==
LOC: DIORS 10:49
PROVIDERS: PCP Naturopath; Visit Provider Student in an Organized Health Care Education/Training Program
DX: S52.592D Other fractures of lower end of left radius, subsequent encounter for closed fracture with routine healing (principal); W00.0XXD Fall on same level due to ice and snow, subsequent encounter
CPT/HCPCS: 73100

== ENCOUNTER 2022-09-26 03:54 | Outpatient (CLI) | payer BC, SELFPAY | END 2022-09-26 03:55 | disposition home or self-care (01) | LOC: LBO 03:54 | PROVIDERS: PCP Naturopath; Visit Provider Naturopath | DX: Z01.89 Encounter for other specified special examinations (principal) | CPT/HCPCS: 36415 ==

== ENCOUNTER 2023-05-16 16:22 | Outpatient (REF) | payer OTHER, SELFPAY ==
--- NOTE | 2023-05-16 15:45 | PAPFT_PTH ---
PATIENT: Kathy Sharma LOC: [facility] U#:[id number] AGE/SX: 63/F ROOM: RE05/16/[address]: Pita Cole MD : 1960 BED: DIS: 05/16/2023 SPEC #: [id number] RECD: 05/16/23 16:28 STATUS: MILAGROS REQ #: [id number] ARTHUR: 05/16/23 15:[address]: Pita Cole DEPT: [facility] Cytology RECD BY: Suellen Dunn ENTERED: 05/16/23 16:29 SP TYPE: PAPFT OTHR DR: Beatris Saeed Tissues: 1 - CX/ENDOCX FOR PAP SMEARS Procedures: PAP THIN PREP/[facility] Screening Comments: [id number]
== END 2023-05-16 16:23 | disposition home or self-care (01) ==
LOC: LBN 16:22
PROVIDERS: PCP Naturopath; Visit Provider Obstetrics & Gynecology
DX: Z12.4 Encounter for screening for malignant neoplasm of cervix (principal)
CPT/HCPCS: 88142

== ENCOUNTER 2024-05-12 03:54 | Outpatient (CLI) | payer OTHER, SELFPAY ==
[2024-05-12 16:23] LABS: Abs Immature Grans 0.01 10^3/uL (0.0-0.06); Absolute Basophil Count 0.05 10^3/uL (0.0-0.2); Absolute Eosinophil Count 0.12 10^3/uL (0.0-0.7); Absolute Lymphocyte Count 1.87 10^3/uL (1.2-3.4); Absolute Monocyte Count 0.54 10^3/uL (0.1-0.8); Absolute Neutrophil Count 3.61 10^3/uL (1.2-6.7); Basophils % 0.8 %; Eosinophils % 1.9 %; HCT 42.4 % (36.0-46.0); HGB 14.1 g/dL (11.2-15.7); Immature Grans % 0.2 %; Lymphocytes % 30.2 %; MCH 29.3 pg (27.0-33.0); MCHC 33.3 % (32.0-36.0); MCV 88 fL (80-95); MPV 8.7 fL (8.0-11.0); Monocytes % 8.7 %; Neutrophils % 58.2 %; Platelet Count 244 10^3/uL (130-400); RBC 4.82 10^6/uL (3.93-5.22); RDW 12.5 % (11.7-14.6); RDW-SD 40.5 fL
[2024-05-12 17:45] LABS: ALT 34 U/L (14-59); AST 18 U/L (15-37); Albumin 4.1 g/dL (3.4-5.0); Alkaline Phosphatase 82 U/L (46-116); Anion Gap 7.1 mmol/L (3-11); BUN 12 mg/dL (7-18); Bilirubin, Total 0.29 mg/dL (0.2-1.0); CO2 28.9 mmol/L (21.0-32.0); CREATININE 0.9 mg/dL (0.55-1.02); Calcium 8.9 mg/dL (8.5-10.1); Chloride 105 mmol/L (98-107); Estimated GFR 72.28 (mL/min/1.73m2); FREE T4 1.08 ng/dL (0.76-1.46); Glucose 104 mg/dL (74-106); Potassium 3.7 mmol/L (3.5-5.1); Sodium 141 mmol/L (136-145); TSH 0.95 uIU/Ml (0.36-3.74)
[2024-05-12 19:08] LABS: Calculated LDL 99 mg/dL (<100); Cholesterol 202 mg/dL (<200); HDL Cholesterol 66 mg/dL (40-60); Triglyceride 185 mg/dL (<150)
== END 2024-05-12 03:55 | disposition home or self-care (01) ==
LOC: LBO 03:54
PROVIDERS: PCP Naturopath; Visit Provider Naturopath
DX: Z00.00 Encounter for general adult medical examination without abnormal findings (principal)
CPT/HCPCS: 36415; 80053; 80061; 84439; 84443; 85025

== ENCOUNTER → 2024-05-20 00:54 | Outpatient (CLI) | payer OTHER, SELFPAY ==
--- NOTE | 2024-05-20 | DI.MAMMO_ITS ---
Exam(s) MAMMO SCREENING EXAM: MAMMO SCREENING CLINICAL HISTORY: SCREENING Z13.820 TECHNIQUE: Bilateral full field digital CC and MLO mammographic images were obtained with 3D tomosyn thesis and utilizing computer aided detection (CAD). COMPARISON: Available for comparison. FINDINGS: Masses/Architectural Distortion: None seen. Microcalcifications: No suspicious pleomorphic-type are seen. Skin Thickening/Nipple Retraction: None. IMPRESSION: 1. No significant interval change with no specific features of malignancy noted. 2. Unless there is more urgent need, screening mammography is recommended, as per [employer] guidelines. BI-RADS Category 1 - Negative Breast Density - Category B - Scattered areas of fibroglandular density Breast density category C or D implies that the patient has dense breast tissue. Dense breast tissue is very common and is not abnormal but dense breast tissue can make it harder to find cancer on a ma mmogram. Also, dense breast tissue may increase their breast cancer risk. This information about the result of the mammogram report was provided to the patient to raise their awareness. Use this report when you speak with the patient about their risks for breast cancer, which includes their family hist ory. At that time, you may recommend for more screening tests (Ultrasound or MRI) as they might be us eful based on their risk. A negative radiographic report should not delay biopsy if a dominant or clinically suspicious mass is present. Up to ten percent of cancers are not identified on mammography. A negative report may reinforce clinical impression. Adenosis and dense breasts may obscure an underlying neoplasm. False positive reports average 6 to 10%. Patient will receive a letter notifying them of these results.
--- NOTE | 2024-05-20 | DI.DEXA_ITS ---
Exam(s) XR DEXA BONE DENSITY W/WO SHON EXAM: XR DEXA BONE DENSITY W/WO SHON CLINICAL HISTORY: Z13.820 Screening Osteoporosis TECHNIQUE: Routine DEXA evaluation of the lumbar spine, hip, or forearm. COMPARISON: No exams were available for comparison FINDINGS: Performed on a Hologic unit. Lateral image: No compression fracture evident. Lumbar Spine total T-score: -2.1 Hip total T-score:-1.3 Independent reading at the level of the femoral neck yields T-score of -1.7 Forearm total T-score: Not performed due to hardware in left wrist. Patient is right handed IMPRESSION: Bone mineral density measures in the osteopenia range. Fracture risk is moderate. Note: Any spine fracture indicates 5x risk for subsequent spine fracture and 2x risk for subsequent h ip fracture. World Health Organization criteria for BMD interpretation classify patients: Normal...... T- Score at or above -1.0 Osteopenic... T- Score between -1.0 and -2.5 Osteoporosis... T-Score at or below -2.5
== END ==
PROVIDERS: PCP Naturopath; Visit Provider Naturopath
DX: Z13.820 Encounter for screening for osteoporosis (principal); Z12.31 Encounter for screening mammogram for malignant neoplasm of breast; M85.89 Other specified disorders of bone density and structure, multiple sites
CPT/HCPCS: 77063; 77067; 77080

== ENCOUNTER 2025-02-16 03:25 | Outpatient (CLI) | payer OTHER, SELFPAY ==
[2025-02-16 08:57] LABS: Abs Immature Grans 0.02 10^3/uL (0.0-0.06); Absolute Basophil Count 0.07 10^3/uL (0.0-0.2); Absolute Eosinophil Count 0.14 10^3/uL (0.0-0.7); Absolute Lymphocyte Count 1.44 10^3/uL (1.2-3.4); Absolute Monocyte Count 0.41 10^3/uL (0.1-0.8); Basophils % 1.3 %; Eosinophils % 2.7 %; HCT 42.6 % (36.0-46.0); HGB 14.3 g/dL (11.2-15.7); Immature Grans % 0.4 %; Lymphocytes % 27.3 %; MCH 29.7 pg (27.0-33.0); MCHC 33.6 % (32.0-36.0); MCV 88 fL (80-95); MPV 8.9 fL (8.0-11.0); Monocytes % 7.8 %; Neutrophils % 60.5 %; Platelet Count 236 10^3/uL (130-400); RBC 4.82 10^6/uL (3.93-5.22); RDW 12.4 % (11.7-14.6); WBC 5.28 10^3/uL (4.4-10.8)
[2025-02-16 10:02] LABS: Hemoglobin A1C 5.5 % (<5.7)
[2025-02-16 10:19] LABS: Iron 73 ug/dL (50-170); Total Iron Binding Capacity 309 ug/dL (250-450); Transferrin Sat 24 % (15-50)
[2025-02-16 10:49] LABS: ALT 32 U/L (14-59); AST 20 U/L (15-37); Alkaline Phosphatase 85 U/L (46-116); Anion Gap 3.9 mmol/L (3-11); BUN 18 mg/dL (7-18); Bilirubin, Total 0.5 mg/dL (0.2-1.0); CO2 29.1 mmol/L (21.0-32.0); Calcium 9.6 mg/dL (8.5-10.1); Calculated LDL 118 mg/dL (<100); Chloride 107 mmol/L (98-107); Cholesterol 210 mg/dL (<200); Ferritin 112 ng/mL (8-252); Glucose 101 mg/dL (74-106); HDL Cholesterol 79 mg/dL (>or=50); Potassium 4.1 mmol/L (3.5-5.1); Sodium 140 mmol/L (136-145); Triglyceride 67 mg/dL (<150); Vitamin B12 1338 pg/mL (193-986); Vitamin D 25 Total 60 ng/mL (30-100)
[2025-02-16 10:59] LABS: Folate > 20.0 ng/mL (8.6-20.0)
[2025-02-16 17:38] LABS: CRP, High Sensitivity 2.28 mg/L (See Note)
[2025-02-16 20:05] LABS: Homocysteine 8.8 umol/L (5.0-13.9)
[2025-02-18 10:33] LABS: Lipoprotein (a) 32 nmol/L (<75)
[2025-02-19 10:47] LABS: Apolipoprotein A1, S 167 mg/dL (>=140); Apolipoprotein B, S 89 mg/dL (See Comment); Apolipoprotein B/A 1 ratio 0.5 (See Comment)
== END 2025-02-16 03:26 | disposition home or self-care (01) ==
PROVIDERS: PCP Naturopath; Visit Provider Naturopath
DX: E55.9 Vitamin D deficiency, unspecified (principal); E78.5 Hyperlipidemia, unspecified; R58 Hemorrhage, not elsewhere classified
CPT/HCPCS: 36415; 80053; 80061; 82172; 82306; 83090; 83695; 86141; 82607; 82728; 82746; 83036; 83540; 83550; 85025; 86140

== ENCOUNTER 2025-08-05 15:22 | Outpatient (CLI) | payer OTHER, SELFPAY ==
[2025-08-05 11:06] LABS: Kit/Specimen SENT
== END 2025-08-05 15:23 | disposition home or self-care (01) ==
LOC: LBO 15:22
PROVIDERS: PCP Naturopath; Visit Provider Naturopath
DX: A69.20 Lyme disease, unspecified (principal)
CPT/HCPCS: 36415